=== PATIENT | female | born 1995 | race Two or more races ===

== ENCOUNTER 2024-10-27 20:30 | Emergency (ER) | payer MEDICAID, SELFPAY ==
[2024-10-27 20:31] VITALS: BMI 27.4
[2024-10-27 20:55] VITALS: BP 138/88; PULSE 155; RESP 20; TEMP 36.9; O2SAT 100
--- NOTE | 2024-10-27 21:12 | PD.EDANX ---
ED Anxiety RME/HPI General Chief Complaint: Anxiety Stated Complaint: anxiety Time Seen by Provider: 10/27/24 21:03 Source: patient, RN notes reviewed and old records reviewed Arrival date/time: 10/27/24 20:30 Mode of arrival: ambulatory Limitations: no limitations RME / HPI RME / HPI narrative: 28yof with hx of anxiety presents to ED for anxiety, palpitations that initiated at 1000 this morning. Denies any specific triggers, patient states I just feel stressed. Symptoms have gradually worsened throughout the day. Patient c/o mild dizziness. No shortness of breath, chest pain, nausea/vomiting, SI/HI or hallucinations reported. Patient tried taking her anxiolytics including gabapentin, trazodone and hydroxyzine without symptom relief. Related Data Home Medications ?Medication ?Instructions ?Recorded ?Confirmed vits no.[id number] fum 1 tab PO QDAY 03/19/19 04/11/19 27 mg iron-folic acid 800 mcg tablet ( Vitamin) Previous Rx's ?Medication ?Instructions ?Recorded hydrocodone 5 mg-acetaminophen 325 1 tab PO Q6H PRN pain #10 tabs 10/09/21 mg tablet hydrocodone 5 mg-acetaminophen 325 1 tab PO BID PRN pain #10 tabs 04/16/ mg tablet Allergies Allergy/AdvReac Type Severity Reaction Status Date / Time No Known Allergies Allergy Verified 10/27/24 20:36 Review of Systems Review of Systems Systems Reviewed: All systems reviewed, normal except as documented Constitutional Constitutional: Denies chills and Denies fever(s) ENT Ears, Nose, Mouth, and Throat: Denies dizziness Cardiovascular Cardiovascular: Denies chest pain, Denies dyspnea, Denies lightheadedness and Reports palpitations Respiratory Respiratory: Denies dyspnea Gastrointestinal Gastrointestinal: Denies nausea and Denies vomiting Neurologic Neurologic: Denies dizziness Psychiatric Psychiatric: Reports anxiety, Denies homicidal ideation and Denies suicidal ideation Endocrine Endocrine: Reports palpitations Past Medical History Past Medical History PSYCHO/SOCIAL: Positive Anxiety Social History SMOKING STATUS: Never smoker SUBSTANCE USE: does not use ALCOHOL: Never ED Exam General Limitations: Present no limitations General appearance: Present alert and in no apparent distress Head Head exam: Present atraumatic and normocephalic Eye Eye exam: Present normal appearance, PERRL and EOMI ENT ENT exam: Present normal exam and mucous membranes moist Neck Neck exam: Present normal inspection and full ROM Chest Chest inspection: Present normal inspection and symmetric chest wall rise Respiratory Respiratory exam: Present normal lung sounds bilaterally; Absent respiratory distress Cardiovascular Cardiovascular exam: Present normal rhythm and tachycardia Extremities Exam Extremities exam: Present normal inspection and full ROM Neurological Exam Neurological exam: Present alert and oriented X3 Psychiatric Psychiatric exam: Present anxious; Absent agitated, homicidal ideation or suicidal ideation Skin Skin exam: Present warm, dry, intact and normal color Course Quality Measures none Orders Category Date Time Status Alcohol, Urine Stat Lab 10/27/24 21:11 Ordered CBC Stat Lab 10/27/24 21:11 Ordered CMP [Comprehensive Metabolic Panel] Stat Lab 10/27/24 21:11 Ordered Drug Screen,Urine Stat Lab 10/27/24 21:11 Ordered TSH [Thyroid Stimulating Hormone] Stat Lab 10/27/24 21:11 Ordered Troponin I Stat Lab 10/27/24 21:11 Ordered UA [Urinalysis] Stat Lab 10/27/24 21:11 Ordered LORazepam [Ativan Inj] Med 10/27/24 21:11 Once 2 mg IM X1 ONE SODIUM CHLORIDE 0.9% @ Wide Open(1,000ml) Med 10/27/24 21:11 Ordered Sodium Chloride 0.9% 1000 ml [Ns] 1,000 ml IV 999 mls/hr Vital Signs Vital signs: Vital Signs Temperature 98.5 F 10/27/24 20:55 Pulse Rate 155 H 10/27/24 20:55 Respiratory Rate 20 10/27/24 20:55 Blood Pressure 138/88 H 10/27/24 20:55 Pulse Oximetry (%) 100 10/27/24 20:55 Oxygen Delivery Method Room Air 10/27/24 20:55 Procedures -ED EKG Interpretation #1: Date of EK10/27/24 Rate: 142 Interpretation: Interpreted by me EKG Impression: No acute ST-T changes, No ectopy, No ischemic changes, Sinus tachycardia, Normal QRS, Normal intervals and Normal axis Anxiety MDM Narrative MDM Narrative: 28yof with hx of anxiety presents to ED for anxiety, palpitations that initiated at 1000 this morning. Denies any specific triggers, patient states I just feel stressed. Symptoms have gradually worsened throughout the day. Patient c/o mild dizziness. No shortness of breath, chest pain, nausea/vomiting, SI/HI or hallucinations reported. Patient tried taking her anxiolytics including gabapentin, trazodone and hydroxyzine without symptom relief. Patient reassessed. She is feeling better, symptoms and vitals improved. Encouraged close follow-up with PCP. Stable for discharge, RTED precautions given. Patient data External records reviewed:: [facility] previous records (04/16/2024 ED visit for incomplete ) Clinical information provided by:: patient Social determinants that could affect healthcare access:: other (specify) (poor access to healthcare) Patient has the following chronic illnesses:: anxiety How is presenting disease/condition affected by chronic disease/condition?: caused by Evaluation data The following diagnostics were reviewed and interpreted by me:: lab results and EKG tracing(s) Lab and/or radiology exams considered but not ordered:: CXR: Lungs clear, no respiratory distress or hypoxia Interpretation Summary: wbc 6.8 hgb 12.7 UDS negative Etoh urine negative hcg negative trop negative TSH wnl Medications / Prescriptions Medications or Prescriptions considered but not ordered:: none Medication administrations:: Above medications administered in ED Consultations Consultation(s) initiated? (list below): No Diagnosis Differential diagnosis anxiety: hyperventilation, panic disorder and acute anxiety Most likely diagnosis given after review of the tests above:: Anxiety Admission Indicated Admission indicated?: not indicated Admission Request Was there a request for admission?: No Disposition Plan Disposition Plan: Discharge Discharge Attestation Discharge Attestation: The patient and all family members were given an opportunity to ask questions and understood the discharge instructions. Discharge instructions specifically effects, indications for sooner follow up or return to the emergency department, and the expected course of current diagnosis. Patient condition: Stable Discharge Plan Plan Patient Disposition: HOME (Self Care) Patient condition on transfer: Stable Prescriptions/Referrals Prescriptions/Med Rec: No Action hydrocodone-acetaminophen 5-325 mg tablet 1 tab PO Q6H MDD 3 PRN (Reason: pain) Qty: 10 0RF Vitamin 27 mg iron- 800 mcg Tablet 1 tab PO QDAY hydrocodone-acetaminophen 5-325 mg tablet 1 tab PO BID MDD 10 PRN (Reason: pain) Qty: 10 0RF Referrals: Cristhian Griffin MD [Primary Care Provider] - In 1 week Problem List Clinical Impression: Anxiety, Heart palpitations Patient/Caregiver Discharge Instructions Education Materials: ED Anxiety Reaction Print Language: Nepali Stand Alone Forms: Marley Award Info., Patient Portal Info Letter PA/[employer] Supervising Physician PA/[employer] Supervising Physician: Derrick
[2024-10-27 21:36] LABS: Basophils % (Auto) 1 % (0-2.5); Eosinophils % (Auto) 1 % (0-10); Hematocrit 39.2 % (36.0-46.0); Hemoglobin 12.7 g/dL (12.0-16.0); Immature Granulocytes % (Auto) 0 % (0-0); Immature Granulocytes Auto 0.01 Thou/mm3 (0.00-0.00); Lymphocytes # (Auto) 1.6 Thou/mm3 (1.0-4.8); Lymphocytes % (Auto) 24 % (10-50); Mean Corpuscular HGB Conc 32.4 g/dl (31.0-37.0); Mean Corpuscular Volume 83 fL (80-100); Monocytes # (Auto) 0.5 Thou/mm3 (0.0-0.8); Monocytes % (Auto) 7 % (0-12); Neutrophils # (Auto) 4.6 Thou/mm3 (1.8-7.7); Neutrophils % (Auto) 68 % (37-80); Nucleated Red Blood Cell % 0 /100 WBC (0); Platelet Count 267 Thou/mm3 (140-440); RDW Standard Deviation 57.6 fL (36.4-46.3); White Blood Count 6.8 Thou/mm3 (3.6-11.0)
[2024-10-27 21:37] LABS: Collection Type, Urine Clean Catch; RBC,Urine 0 /hpf (0-3)
[2024-10-27 21:48] LABS: Bacteria,Urine Rare; Bilirubin,Urine Negative (Negative); Blood,Urine Negative (Negative); Clarity,Urine Turbid (Clear/Hazy); Color,Urine Yellow (Lt Yel-Yel); Glucose, Urine Negative (Negative); Ketones,Urine Negative (Negative); Leukocyte Esterase,Urine Positive (Negative); Nitrite,Urine Negative (Negative); Protein,Urine 1+ (Neg - Trace); Specific Gravity,Urine 1.024 (1.001-1.035); Squamous Epithelial Cell,Urine 24 /hpf (0-5); Urobilinogen,Urine Negative mg/dL (0.0-1.0); WBC,Urine 2 /hpf (0-5)
[2024-10-27 21:51] LABS: HCG Qualitative,Urine Negative
[2024-10-27 21:54] LABS: Alanine Aminotransferase 51 U/L (10-49); Albumin, Serum 4.4 gm/dL (3.5-5.0); Albumin/Globulin Ratio 1.5 (1.2-2.2); Alkaline Phosphatase 69 U/L (46-116); Anion Gap 8 (7-16); Aspartate Amino Transferase 31 U/L (0-34); BUN/Creatinine Ratio 9 Ratio (12-20); Bilirubin,Total 0.3 mg/dL (0.3-1.2); Blood Urea Nitrogen 7 mg/dL (9-23); Calcium 8.8 mg/dL (8.3-10.6); Calcium (Corrected) 8.8 mg/dL (8.5-10.1); Carbon Dioxide 25.5 mMol/L (20.0-31.0); Chloride 105 mMol/L (98-107); Creatinine (Component) 0.8 mg/dL (0.6-1.3); Estimated Creatinine Clearance 96.7 mL/min (>60); Globulin 2.9 gm/dL (2.3-3.5); Glucose 132 mg/dL (74-106); Osmolality,Calculated 275 (275-295); Potassium 3.6 mMol/L (3.4-5.1); Sodium 138 mMol/L (136-145); Thyroid Stimulating Hormone 1.08 uIU/mL (0.55-4.78); Total Protein 7.3 gm/dL (5.7-8.2); Troponin I < 0.002 ng/mL (0.0-0.045); eGFR > 60 See Note
[2024-10-27 21:54] LABS: Alcohol, Urine Negative (Negative); Amphetamine/Methamp Scrn,U Negative (Negative); Barbiturate Screen,Urine Negative (Negative); Benzodiazepines Screen,Urine Negative (Negative); Benzoylecgonine Screen, Ur Negative (Negative); Fentanyl Screen,Urine Negative (Negative); Opiate Screen,Urine Negative (Negative); THC Screen,Urine Negative (Negative)
[2024-10-27] MEDS: LORazepam 2 MG/ML VIAL IM (22:18)
[2024-10-27] MEDS: SODIUM CHLORIDE 0.9% 1000 ML 1,000 ML 999 ML IV (22:29)
[2024-10-27 23:29] VITALS: BP 117/81; PULSE 85; RESP 17; TEMP 36.8; O2SAT 98
== END 2024-10-27 23:35 | disposition home or self-care (01) ==
PROVIDERS: Physician Assistant; Emergency Provider Emergency Medicine; PCP Family Medicine
DX: F41.9 Anxiety disorder, unspecified (principal); R00.2 Palpitations; R00.0 Tachycardia, unspecified
CPT/HCPCS: 36415; 80053; 80307; 80320; 81001; 81025; 84443; 84484; 85025; 93005; 96372; 99284; J2060; J7030; G0480

== ENCOUNTER 2024-11-11 17:34 | Emergency (ER) | payer MEDICAID, SELFPAY ==
[2024-11-11 17:43] VITALS: BP 134/88; PULSE 113; RESP 18; TEMP 36.7; O2SAT 98
--- NOTE | 2024-11-11 17:52 | XR_ITS ---
Examination: PA lateral chest 2 views TECHNIQUE: Upright PA lateral chest 2 views Date and time: November 11, 2024 1905 hours Comparison September 11, 2021. INDICATIONS: Shortness of breath today. FINDINGS: Normal heart size Lungs are clear. Osseous structures are intact IMPRESSION: No active disease
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
--- NOTE | 2024-11-11 18:26 | PC.NURSE ---
OFFICER Ziggy MATUTE WITH PT IN CONFERENCE ROOM. PT'S MOTHER ALSO PRESENT.
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
[2024-11-11 18:37] LABS: Basophils % (Auto) 1 % (0-2.5); Eosinophils % (Auto) 1 % (0-10); Hematocrit 39.4 % (36.0-46.0); Hemoglobin 13.3 g/dL (12.0-16.0); Immature Granulocytes % (Auto) 0 % (0-0); Immature Granulocytes Auto 0.01 Thou/mm3 (0.00-0.00); Lymphocytes # (Auto) 1.3 Thou/mm3 (1.0-4.8); Lymphocytes % (Auto) 20 % (10-50); Mean Corpuscular HGB Conc 33.8 g/dl (31.0-37.0); Mean Corpuscular Hemoglobin 28.3 pg (25.0-35.0); Mean Corpuscular Volume 84 fL (80-100); Monocytes # (Auto) 0.3 Thou/mm3 (0.0-0.8); Monocytes % (Auto) 5 % (0-12); Neutrophils # (Auto) 4.7 Thou/mm3 (1.8-7.7); Neutrophils % (Auto) 74 % (37-80); Nucleated Red Blood Cell % 0 /100 WBC (0); Platelet Count 229 Thou/mm3 (140-440); RDW Standard Deviation 50.4 fL (36.4-46.3); White Blood Count 6.4 Thou/mm3 (3.6-11.0)
[2024-11-11 19:10] LABS: Alanine Aminotransferase 15 U/L (10-49); Albumin, Serum 4.5 gm/dL (3.5-5.0); Albumin/Globulin Ratio 1.7 (1.2-2.2); Alkaline Phosphatase 53 U/L (46-116); Anion Gap 9 (7-16); Aspartate Amino Transferase 17 U/L (0-34); BUN/Creatinine Ratio 17 Ratio (12-20); Bilirubin,Total 0.3 mg/dL (0.3-1.2); Blood Urea Nitrogen 10 mg/dL (9-23); Calcium 8.8 mg/dL (8.3-10.6); Calcium (Corrected) 8.8 mg/dL (8.5-10.1); Carbon Dioxide 25.3 mMol/L (20.0-31.0); Chloride 108 mMol/L (98-107); Creatinine (Component) 0.6 mg/dL (0.6-1.3); Globulin 2.6 gm/dL (2.3-3.5); Glucose 108 mg/dL (74-106); Osmolality,Calculated 283 (275-295); Potassium 3.4 mMol/L (3.4-5.1); Sodium 142 mMol/L (136-145); Total Protein 7.1 gm/dL (5.7-8.2); eGFR > 60 See Note
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
[2024-11-11] MEDS: ONDANSETRON ODT 4 MG TABRAP PO (19:30)
[2024-11-11] MEDS: ACETAMINOPHEN w/COD 300-30 TABLET 2 TAB PO (19:30)
[2024-11-11 19:44] LABS: Collection Type, Urine Clean Catch
[2024-11-11 19:50] LABS: HCG Qualitative,Urine Negative
[2024-11-11 19:51] LABS: Bilirubin,Urine Negative (Negative); Blood,Urine Trace (Negative); Clarity,Urine Clear (Clear/Hazy); Color,Urine Lt-Yellow (Lt Yel-Yel); Glucose, Urine Negative (Negative); Ketones,Urine Negative (Negative); Leukocyte Esterase,Urine Negative (Negative); Nitrite,Urine Negative (Negative); Protein,Urine Negative (Neg - Trace); RBC,Urine 2 /hpf (0-3); Specific Gravity,Urine 1.016 (1.001-1.035); Squamous Epithelial Cell,Urine 1 /hpf (0-5); Urobilinogen,Urine Negative mg/dL (0.0-1.0); WBC,Urine 4 /hpf (0-5)
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
[2024-11-11 20:05] LABS: Amphetamine/Methamp Scrn,U Negative (Negative); Barbiturate Screen,Urine Negative (Negative); Benzodiazepines Screen,Urine Negative (Negative); Benzoylecgonine Screen, Ur Negative (Negative); Fentanyl Screen,Urine Negative (Negative); Opiate Screen,Urine Negative (Negative); THC Screen,Urine Negative (Negative)
[2024-11-11 21:30] VITALS: BP 108/71; PULSE 84; RESP 20; TEMP 36.8; O2SAT 100
[2024-11-11] MEDS: KETOROLAC INJ 60 MG/2 ML VIAL IM (21:32)
== END 2024-11-11 22:18 | disposition home or self-care (01) ==
PROVIDERS: Nurse Practitioner Family; Emergency Provider Emergency Medicine
DX: T14.8XXA Other injury of unspecified body region, initial encounter (principal); Y04.0XXA Assault by unarmed brawl or fight, initial encounter; R51.9 Headache, unspecified; M79.602 Pain in left arm; M54.2 Cervicalgia; R06.02 Shortness of breath
CPT/HCPCS: 36415; 70450; 70486; 71046; 72125; 80053; 80307; 81001; 81025; 85025; 96372; 99284; J1885; Q0162; A9270

== ENCOUNTER 2024-12-30 13:17 | Emergency (ER) | payer MEDICAID, SELFPAY ==
--- NOTE | 2024-12-30 13:22 | EKG_ITS ---
[facility] Test Date: 2024-12-30 Pat Name: RADHA PATTERSON Department: Room: - Gender: Female Floorman: : 1995 Requested By: ED Temporary Provider Order Number: [id number] Reading MD: ED Temporary Provider Measurements Intervals [place] Rate: 96 P: 11 MI: 130 QRS: 100 QRSD: 101 T: 54 QT: 342 QTc: 433 Interpretive Statements SINUS RHYTHM BORDERLINE RIGHT AXIS DEVIATION [QRS AXIS > 90] Compared to ECG 09/11/2021 13:52:43 No significant changes /store/S0/[id number]
[2024-12-30 13:33] VITALS: BP 125/84; PULSE 95; RESP 18; TEMP 36.8; O2SAT 99; BMI 23.7
--- NOTE | 2024-12-30 14:02 | XR_ITS ---
Examination: Abdomen sonogram, Limited Date and time of exam: December 30, 2024, 1510 hrs. Indications: Right upper abdominal pain beginning 11:00 AM this morning Technique: Real-time mccurdy scale transabdominal sonographic images of the upper abdomen obtained. Findings: Normal gallbladder. Normal common bile duct 0.25 cm. Pancreatic head 2.4 cm Liver 10.2 cm no liver lesions Normal hepatopedal portal venous oh Patent IVC Impression: Negative study
[2024-12-30 14:39] LABS: Basophils % (Auto) 1 % (0-2.5); Eosinophils % (Auto) 1 % (0-10); Hematocrit 40.7 % (36.0-46.0); Hemoglobin 13.6 g/dL (12.0-16.0); Immature Granulocytes % (Auto) 0 % (0-0); Immature Granulocytes Auto 0.01 Thou/mm3 (0.00-0.00); Lymphocytes # (Auto) 1.3 Thou/mm3 (1.0-4.8); Lymphocytes % (Auto) 27 % (10-50); Mean Corpuscular HGB Conc 33.4 g/dl (31.0-37.0); Mean Corpuscular Hemoglobin 27.6 pg (25.0-35.0); Mean Corpuscular Volume 83 fL (80-100); Monocytes # (Auto) 0.3 Thou/mm3 (0.0-0.8); Monocytes % (Auto) 6 % (0-12); Neutrophils # (Auto) 3.1 Thou/mm3 (1.8-7.7); Neutrophils % (Auto) 65 % (37-80); Nucleated Red Blood Cell % 0 /100 WBC (0); Platelet Count 253 Thou/mm3 (140-440); RDW Standard Deviation 36.9 fL (36.4-46.3); Red Blood Count 4.93 Miln/mm3 (4.00-5.20); White Blood Count 4.8 Thou/mm3 (3.6-11.0)
[2024-12-30 14:46] LABS: Collection Type, Urine Clean Catch
[2024-12-30 14:55] LABS: Bilirubin,Urine Negative (Negative); Blood,Urine Negative (Negative); Clarity,Urine Turbid (Clear/Hazy); Color,Urine Yellow (Lt Yel-Yel); Glucose, Urine Negative (Negative); Ketones,Urine 1+ (Negative); Leukocyte Esterase,Urine Negative (Negative); Nitrite,Urine Negative (Negative); Protein,Urine 1+ (Neg - Trace); RBC,Urine 4 /hpf (0-3); Specific Gravity,Urine 1.028 (1.001-1.035); Squamous Epithelial Cell,Urine 1 /hpf (0-5); Urobilinogen,Urine Negative mg/dL (0.0-1.0); WBC,Urine 5 /hpf (0-5)
[2024-12-30 14:56] LABS: HCG Qualitative,Urine Negative
[2024-12-30 14:56] LABS: B-Type Natriuretic Peptide < 20 pg/mL (0-100)
[2024-12-30 14:57] LABS: Alanine Aminotransferase 12 U/L (10-49); Albumin, Serum 4.4 gm/dL (3.5-5.0); Albumin/Globulin Ratio 1.5 (1.2-2.2); Alkaline Phosphatase 51 U/L (46-116); Anion Gap 6 (7-16); Aspartate Amino Transferase 15 U/L (0-34); BUN/Creatinine Ratio 10 Ratio (12-20); Bilirubin,Total 0.5 mg/dL (0.3-1.2); Blood Urea Nitrogen 7 mg/dL (9-23); Calcium 8.8 mg/dL (8.3-10.6); Calcium (Corrected) 8.8 mg/dL (8.5-10.1); Carbon Dioxide 24.3 mMol/L (20.0-31.0); Chloride 110 mMol/L (98-107); Creatinine (Component) 0.7 mg/dL (0.6-1.3); Estimated Creatinine Clearance 100.6 mL/min (>60); Globulin 2.9 gm/dL (2.3-3.5); Glucose 102 mg/dL (74-106); Lipase 32 U/L (12-53); Osmolality,Calculated 277 (275-295); Potassium 4.1 mMol/L (3.4-5.1); Sodium 140 mMol/L (136-145); Total Protein 7.3 gm/dL (5.7-8.2); Troponin I < 0.002 ng/mL (0.0-0.045); eGFR > 60 See Note
--- NOTE | 2024-12-30 15:30 | PD.EDCHEST ---
ED Chest Pain RME/HPI General Chief Complaint: Chest Pain Stated Complaint: CHEST PALPITATIONS,TINGLING BILATERAL ARMS X 2 HRS Time Seen by Provider: 12/30/24 13:59 Arrival date/time: 12/30/24 13:17 This is a case of 29-year-old female who came in in the emergency room due to chest pain on and off for 1 week associated with palpitation patient also noted to have epigastric abdominal pain and tingling sensation on both arm worsening symptoms this patient decided to sought consult here in the emergency room Limitations: no limitations Related Data Home Medications ?Medication ?Instructions ?Recorded ?Confirmed vits no.124-ferrous fum 1 tab PO QDAY 03/19/19 04/11/19 27 mg iron-folic acid 800 mcg tablet ( Vitamin) Previous Rx's ?Medication ?Instructions ?Recorded hydrocodone 5 mg-acetaminophen 325 1 tab PO Q6H PRN pain #10 tabs 10/09/21 mg tablet hydrocodone 5 mg-acetaminophen 325 1 tab PO BID PRN pain #10 tabs 04/16/ mg tablet hydrocodone 5 mg-acetaminophen 325 2 tab PO Q8H PRN pain #20 tabs 11/11/24 mg tablet ibuprofen 600 mg tablet 600 mg PO TID PRN fever or pain 11/11/24 #30 tabs lidocaine 5 % topical patch 2 patch topical QDAY PRN pain #30 11/11/24 (Lidoderm) ea famotidine 20 mg tablet 20 mg PO BID 30 days #60 tabs 12/30/24 omeprazole 40 mg capsule,delayed 40 mg PO QDAY 30 days #30 caps 12/30/24 release ondansetron 4 mg disintegrating 4 mg PO Q8H PRN nausea and 12/30/24 tablet vomiting #20 tabs Allergies Allergy/AdvReac Type Severity Reaction Status Date / Time No Known Allergies Allergy Verified 11/11/24 17:38 Review of Systems Review of Systems Systems Reviewed: All systems reviewed, normal except as documented Constitutional Constitutional: Reports system reviewed and no additional complaints, except as documented, Reports as per HPI, Denies anorexia, Denies body ache(s), Denies chills and Denies fever(s) ENT Ears, Nose, Mouth, and Throat: Denies dysphagia and Denies odynophagia Cardiovascular Cardiovascular: Reports system reviewed and no additional complaints, except as documented, Reports as per HPI, Denies acrocyanosis, Reports chest pain, Denies chest pain at rest, Denies chest pain with activity, Denies claudication, Denies diaphoresis, Denies dyspnea, Denies dyspnea on exertion, Denies edema, Denies irregular heart rhythm, Denies leg edema, Denies leg ulcers, Denies lightheadedness, Denies orthopnea, Denies palpitations, Denies paroxysmal nocturnal dyspnea, Denies pedal edema, Denies radiating jaw, neck or arm pain, Reports rapid heart rate, Denies slow heart rate and Denies syncope Respiratory Respiratory: Reports system reviewed and no additional complaints, except as documented, Reports as per HPI, Denies dyspnea and Denies dyspnea on exertion Gastrointestinal Gastrointestinal: Reports system reviewed and no additional complaints, except as documented, Reports as per HPI, Reports abdominal pain, Denies belching, Denies bloating, Denies change in bowel habits, Denies change in stool character, Denies coffee ground emesis, Denies constipation, Denies cramping, Denies diarrhea, Denies dyspepsia, Denies dysphagia, Denies early satiety, Denies excessive flatus, Denies fecal incontinence, Denies heartburn, Denies hematemesis, Denies hematochezia, Denies loose stools, Denies melena, Reports nausea, Denies odynophagia, Denies tenesmus and Reports vomiting Genitourinary Genitourinary: Reports system reviewed and no additional complaints, except as documented and Reports as per HPI Musculoskeletal Musculoskeletal: Reports system reviewed and no additional complaints, except as documented and Reports as per HPI Neurologic Neurologic: Reports system reviewed and no additional complaints, except as documented, Reports as per HPI and Denies syncope Endocrine Endocrine: Denies palpitations Past Medical History Past Medical History NEUROLOGIC: Negative Neurological Disorders CARDIAC: Negative Cardiac Disorders or Congestive Heart Failure RESPIRATORY: Negative Chronic Obstructive Pulmonary Disease (COPD) or Asthma GASTROINTESTINAL: Negative Gastrointestinal Disorders GENITOURINARY: Negative Genitourinary Disorders or Renal Disease MUSCULOSKELETAL: Negative Musculoskeletal Disorders ENDOCRINE: Negative Endocrine Disorders, Diabetes Mellitus Type 1 or Diabetes Mellitus Type 2 HEMATOLOGIC: Negative Blood Disorders or Sickle Cell Disease PSYCHO/SOCIAL: Positive Anxiety OTHER HISTORY: Negative Hospitalization, Autoimmune Disease, Down Syndrome, Developmental Delay, Falls, Blood Transfusions, Blood Transfusion Reaction, Anesthesia Reactions, Organ Transplant, Chemotherapy, Radiation Therapy, Hyperbaric Therapy, MRSA, VRSA, Vancomycin-Resistant Enterococci or Cancer Family History FAMILY HISTORY: Positive Family Cardiac Disorders (FATHER , GRANDFATHER) and Family Cancer (GRANDMOTHER BREAST CANCER); Negative Family Psychiatric Problems, Family Respiratory Disorders, Family Gastrointestinal Problems, Family Surgery or Family Anesthesia Reaction Surgical History SURGICAL: Negative Section or Organ Transplant Social History SMOKING STATUS: Never smoker SUBSTANCE USE: does not use ED Exam General Limitations: Present no limitations General appearance: Present alert and in no apparent distress Head Head exam: Present atraumatic, normocephalic and normal inspection Eye Eye exam: Present normal appearance, PERRL and EOMI ENT ENT exam: Present normal exam, normal oropharynx, mucous membranes moist, mucous membranes dry and TM's normal bilaterally Neck Neck exam: Present normal inspection, full ROM and trachea midline; Absent tenderness, meningismus, lymphadenopathy or thyromegaly Chest Chest inspection: Present normal inspection and symmetric chest wall rise; Absent tenderness or rash Respiratory Respiratory exam: Present normal lung sounds bilaterally; Absent respiratory distress, wheezes, stridor, accessory muscle use or prolonged expiratory phase Cardiovascular Cardiovascular exam: Present regular rate, normal rhythm and normal heart sounds; Absent bradycardia, tachycardia, irregular rhythm, systolic murmur or diastolic murmur Abdominal Exam Abdominal exam: Present soft and normal bowel sounds; Absent distention, tenderness, guarding, rebound, rigidity, diminished bowel sounds or hyperactive bowel sounds Extremities Exam Extremities exam: Present normal inspection and full ROM Expanded Upper Extremity Exam Shoulder exam: Present normal inspection and full ROM; Absent tenderness or swelling Arm exam: Present normal inspection and full ROM; Absent tenderness or swelling Elbow exam: Present normal inspection and full ROM; Absent tenderness or swelling Back Exam Back exam: Present normal inspection and full ROM Neurological Exam Neurological exam: Present alert, oriented X3, CN II-XII intact, normal gait and reflexes normal; Absent motor sensory deficit Psychiatric Psychiatric exam: Present normal affect and normal mood Skin Skin exam: Present warm, dry, intact and normal color Course Quality Measures none Orders Category Date Time Status EKG (ED ONLY) *Do not use* NOW Care 12/30/24 13:22 Completed EKG (ED Only) Stat Exams 12/30/24 13:22 Draft EKG (ED Only) Urgent Exams 12/30/24 13:22 Ordered US gall bladder Stat Exams 12/30/24 14:02 Completed BNP [B-Type Natriuretic Peptide] Stat Lab 12/30/24 14:24 Completed CBC Stat Lab 12/30/24 14:24 Completed Comprehensive Metabolic Panel Stat Lab 12/30/24 14:24 Completed HCG Qualitative,Urine Stat Lab 12/30/24 14:42 Completed Lipase Stat Lab 12/30/24 14:24 Completed Thyroid Stimulating Hormone Stat Lab 12/30/24 14:24 Completed Troponin I Stat Lab 12/30/24 14:24 Completed Urinalysis Stat Lab 12/30/24 14:42 Completed Famotidine [Pepcid] Med 12/30/24 15:28 Discontinued 40 mg PO X1 ONE Lidocaine 2% Viscous [Xylocaine 2% Viscous] Med 12/30/24 15:28 Discontinued 15 ml PO X1 ONE Ondansetron Odt [Zofran Odt] Med 12/30/24 15:28 Discontinued 4 mg PO X1 ONE mg Hyd/Al Hyd/Melissa Susp [Maalox Susp] Med 12/30/24 15:28 Discontinued 30 ml PO X1 ONE Vital Signs Vital signs: Vital Signs Temperature 98.3 F 12/30/24 13:33 Pulse Rate 95 12/30/24 13:33 Respiratory Rate 18 12/30/24 13:33 Blood Pressure 125/84 12/30/24 13:33 Pulse Oximetry (%) 99 12/30/24 13:33 Oxygen Delivery Method Room Air 12/30/24 13:33 Patient is afebrile not tachycardic not tachypneic BP stable not hypoxic oxygen saturation is 99% in room air Chest Pain MDM Narrative MDM Narrative:: This is a case of 29-year-old female who came in in the emergency room due to chest pain on and off for 1 week associated with palpitation patient also noted to have epigastric abdominal pain and tingling sensation on both arm worsening symptoms this patient decided to sought consult here in the emergency room patient physical examination patient is awake alert oriented not in distress nontoxic looking patient is afebrile not tachycardic not tachypneic BP stable not hypoxic lungs sound is clear no crackles no rales no retraction no stridor heart normal rate regular rhythm no murmur abdominal exam mild tenderness epigastric area no guarding no rebound no rigidity negative psoas negative straight or negative Rovsing's negative McBurney's negative Baumann sign negative CVA tenderness blood test showed no leukocytosis no anemia kidney and liver function is normal no electrolyte imbalance BNP and troponin is negative TSH is normal urinalysis is normal ultrasound of the gallbladder is negative at this point patient symptoms is not cardiopulmonary pathology possible gastritis patient was given GI cocktail and Zofran which patient condition markedly improved and resolved patient will follow-up with PCP in 2 days for reevaluation and to be referred to therapy administrative assistant for gastritis for possible EGD she needs to be seen also by shake backboard notcher for chest pain palpitation for possible echocardiogram stress test and Holter monitor patient was prescribed with omeprazole and Pepcid for gastritis and Zofran for vomiting patient understood very well the discharge instruction Patient was discharged with comfortable condition walking with stable gait. Patient verbalized no further complains explained diagnosis and answered patient question. Patient is comfortable with the proposed management plan including the need to follow up with his/her primary care physician and any specialist if applicable Discussed patient for any urgent condition or worsening sx, He/She needed to go to emergency room immediately or call 911. Patient acknowledge the responsibility to follow up as instructed and to monitor her/his symptoms. For any persistence of the symptoms for more than 3-5 days return precaution advised. Discussed the result of the test and was given printed discharge instruction Patient data External records reviewed:: [facility] previous records Clinical information provided by:: patient Social determinants that could affect healthcare access:: none Patient has the following chronic illnesses:: None How is presenting disease/condition affected by chronic disease/condition?: no chronic disease Evaluation data The following diagnostics were reviewed and interpreted by me:: lab results and radiology exam(s) Lab and/or radiology exams considered but not ordered:: Reviewed Interpretation Summary: Reviewed Medications / Prescriptions Medications or Prescriptions considered but not ordered:: Given Medication administrations:: Medication Administration History Discontinued Medications Al Hydrox/Mg Hydrox/Simethicone (Mg Hyd/Al Hyd/Melissa (Maalox Reg) Susp 30 Ml Udc) 30 ml PO X1 ONE Stop: 12/30/24 15:29 Last Admin: 12/30/24 16:03 Dose: 30 ml Documented By: Famotidine (Famotidine 20 Mg Tablet) 40 mg PO X1 ONE Stop: 12/30/24 15:29 Last Admin: 12/30/24 16:02 Dose: 40 mg Documented By: Lidocaine HCl (Lidocaine Viscous 2% 15 Ml Udc) 15 ml PO X1 ONE Stop: 12/30/24 15:29 Last Admin: 12/30/24 16:04 Dose: 15 ml Documented By: Ondansetron HCl (Ondansetron Odt 4 Mg Tabrap) 4 mg PO X1 ONE; Protocol Stop: 12/30/24 15:29 Last Admin: 12/30/24 16:02 Dose: 4 mg Documented By: Given Consultations Consultation(s) initiated? (list below): No Diagnosis Chest Pain Differential Diagnosis: other (Chest pain of unknown etiology gastritis costochondritis atypical chest pain) Most likely diagnosis given after review of the tests above:: Gastritis Admission Indicated Admission indicated?: not indicated Explain why admission is indicated or not indicated:: Not indicated Admission Request Was there a request for admission?: No Admission Attestation Admission request attestation: Not indicated Disposition Plan Disposition Plan: Discharge Discharge Attestation Discharge Attestation: The patient and all family members were given an opportunity to ask questions and understood the discharge instructions. Discharge instructions specifically effects, indications for sooner follow up or return to the emergency department, and the expected course of current diagnosis. Patient condition: Stable Discharge Plan Plan Patient Disposition: HOME (Self Care) Patient condition on transfer: Stable Prescriptions/Referrals Prescriptions/Med Rec: New omeprazole 40 mg capsule,delayed release(DR/EC) 40 mg PO QDAY 30 Days Qty: 30 0RF famotidine 20 mg tablet 20 mg PO BID 30 Days Qty: 60 0RF ondansetron 4 mg tablet,disintegrating 4 mg PO Q8H PRN (Reason: nausea and vomiting) Qty: 20 0RF No Action hydrocodone-acetaminophen 5-325 mg tablet 1 tab PO Q6H MDD 3 PRN (Reason: pain) Qty: 10 0RF Vitamin 27 mg iron- 800 mcg Tablet 1 tab PO QDAY hydrocodone-acetaminophen 5-325 mg tablet 1 tab PO BID MDD 10 PRN (Reason: pain) Qty: 10 0RF hydrocodone-acetaminophen 5-325 mg tablet 2 tab PO Q8H MDD 6 PRN (Reason: pain) Qty: 20 0RF lidocaine [Lidoderm] 5 % adhesive patch,medicated 2 patch topical QDAY PRN (Reason: pain) Qty: 30 0RF Rx Instructions: leave on most painful area for up to 12 hrs ibuprofen 600 mg tablet 600 mg PO TID PRN (Reason: fever or pain) Qty: 30 0RF Referrals: No Primary/Family,Physician [Primary Care Provider] - In 1 week Problem List Clinical Impression: Chest pain of unknown etiology, Palpitation, Gastritis Patient/Caregiver Discharge Instructions Education Materials: ED Chest Pain, Uncertain Cause, ED Gastritis (Adult), ED Palpitations Additional Instructions: Follow-up with your primary care physician in 2 days for reevaluation and to be referred to shake backboard notcher for further evaluation and treatment of chest pain and palpitation for possible echocardiogram stress test and Holter monitor and to be referred to GI specialist for gastritis for possible EGD for any recurrence persistent worsening symptoms or any emergent concern return to the emergency room immediately or call 911 avoid skipping of meals avoid fat fried high cholesterol foods avoid spicy food avoid alcohol soda coffee take your medication as directed increase water intake keep hydrated Print Language: Ecuadorean Stand Alone Forms: Marley Award Info., Patient Portal Info Letter PA/RETAIL SALES ASSISTANT Supervising Physician MARTHA/KAROLYN Supervising Physician: dr cintron
[2024-12-30 15:55] VITALS: BP 121/84; PULSE 90; RESP 16; TEMP 36.9; O2SAT 99
[2024-12-30] MEDS: ONDANSETRON ODT 4 MG TABRAP PO (16:02)
[2024-12-30] MEDS: FAMOTIDINE 20 MG TABLET 40 MG PO (16:02)
[2024-12-30] MEDS: MG HYD/AL HYD/SIME (Maalox Reg) SUSP 30 ML UDC PO (16:03)
[2024-12-30] MEDS: LIDOCAINE VISCOUS 2% 15 ML UDC PO (16:04)
[2024-12-30 16:08] LABS: Thyroid Stimulating Hormone 0.43 uIU/mL (0.55-4.78)
== END 2024-12-30 18:26 | disposition home or self-care (01) ==
PROVIDERS: Nurse Practitioner Family; Emergency Provider Emergency Medicine
DX: K29.70 Gastritis, unspecified, without bleeding (principal); R00.2 Palpitations; R07.9 Chest pain, unspecified
CPT/HCPCS: 36415; 76705; 80053; 81001; 81025; 83690; 83880; 84443; 84484; 85025; 93005; 99284; J3490; Q0162; A9270

== ENCOUNTER 2025-02-25 02:07 | Emergency (ER) | payer MEDICAID, SELFPAY ==
[2025-02-25 02:08] VITALS: BMI 25.9
[2025-02-25 02:12] VITALS: BP 137/91; PULSE 88; RESP 16; TEMP 37.1; O2SAT 100
--- NOTE | 2025-02-25 02:12 | EKG_ITS ---
[facility] Test Date: 2025-02-25 Pat Name: RADHA PATTERSON Department: Room: - Gender: Female [employer] Blender: : 1995 Requested By: ED Temporary Provider Order Number: [id number] Reading MD: ED Temporary Provider Measurements Intervals [place] Rate: 81 P: 3 SD: 124 QRS: 75 QRSD: 106 T: 53 QT: 349 QTc: 407 Interpretive Statements SINUS RHYTHM Compared to ECG 12/30/2024 13:25:44 No significant changes /store/S0/[id number]/[id number]
--- NOTE | 2025-02-25 02:18 | XR_ITS ---
Examination: PA chest single view TECHNIQUE: Upright PA chest single view Date and time: February 25, 2025, 0221 hours, comparison November 11, 2024 INDICATIONS: Chest pain and tachycardia today. FINDINGS: Normal heart size. Lungs are clear. The osseous structures are intact. IMPRESSION: No active disease.
[2025-02-25 03:03] LABS: Basophils # (Auto) 0.0 Thou/mm3 (0.0-0.2); Basophils % (Auto) 1 % (0-2.5); Eosinophils # (Auto) 0.1 Thou/mm3 (0.0-0.5); Eosinophils % (Auto) 2 % (0-10); Hematocrit 33.0 % (36.0-46.0); Hemoglobin 10.8 g/dL (12.0-16.0); Immature Granulocytes Auto 0.02 Thou/mm3 (0.00-0.00); Lymphocytes # (Auto) 2.0 Thou/mm3 (1.0-4.8); Lymphocytes % (Auto) 29 % (10-50); Mean Corpuscular HGB Conc 32.7 g/dl (31.0-37.0); Mean Corpuscular Hemoglobin 27.5 pg (25.0-35.0); Mean Corpuscular Volume 84 fL (80-100); Monocytes # (Auto) 0.5 Thou/mm3 (0.0-0.8); Monocytes % (Auto) 8 % (0-12); Neutrophils # (Auto) 4.1 Thou/mm3 (1.8-7.7); Neutrophils % (Auto) 61 % (37-80); Nucleated Red Blood Cell # 0.00 Thou/mm3 (0.00-0.00); Nucleated Red Blood Cell % 0 /100 WBC (0); Platelet Count 271 Thou/mm3 (140-440); RDW Standard Deviation 42.8 fL (36.4-46.3); Red Blood Count 3.93 Miln/mm3 (4.00-5.20); White Blood Count 6.8 Thou/mm3 (3.6-11.0)
[2025-02-25 03:23] LABS: HCG,Qualitative Serum Negative
[2025-02-25 03:27] LABS: Alanine Aminotransferase 15 U/L (10-49); Albumin, Serum 4.0 gm/dL (3.5-5.0); Albumin/Globulin Ratio 1.6 (1.2-2.2); Alkaline Phosphatase 50 U/L (46-116); Anion Gap 8 (7-16); Aspartate Amino Transferase 20 U/L (0-34); BUN/Creatinine Ratio 15 Ratio (12-20); Bilirubin,Total 0.3 mg/dL (0.3-1.2); Blood Urea Nitrogen 9 mg/dL (9-23); Calcium 9.5 mg/dL (8.3-10.6); Calcium (Corrected) 9.5 mg/dL (8.5-10.1); Carbon Dioxide 27.8 mMol/L (20.0-31.0); Chloride 107 mMol/L (98-107); Creatinine (Component) 0.6 mg/dL (0.6-1.3); Estimated Creatinine Clearance 119.7 mL/min (>60); Globulin 2.5 gm/dL (2.3-3.5); Glucose 124 mg/dL (74-106); Osmolality,Calculated 284 (275-295); Potassium 3.4 mMol/L (3.4-5.1); Sodium 143 mMol/L (136-145); Total Protein 6.5 gm/dL (5.7-8.2); Troponin I < 0.002 ng/mL (0.0-0.045); eGFR > 60 See Note
[2025-02-25 03:35] LABS: B-Type Natriuretic Peptide 23 pg/mL (0-100)
--- NOTE | 2025-02-25 04:57 | PD.EDCHEST ---
ED Chest Pain RME/HPI General Chief Complaint: Chest Pain Stated Complaint: CHEST PRESSURE /RAPID HR Time Seen by Provider: 02/25/25 02:17 Arrival date/time: 02/25/25 02:07 This is a case of 29-year-old female with history of anxiety came into the emergency room due to chest pain and palpitation for 1 day no shortness of breath persistence of the symptoms this patient decided to sought consult here in the emergency room Limitations: no limitations Related Data Home Medications ?Medication ?Instructions ?Recorded ?Confirmed vits no.124-ferrous fum 1 tab PO QDAY 03/19/19 04/11/19 27 mg iron-folic acid 800 mcg tablet ( Vitamin) Previous Rx's ?Medication ?Instructions ?Recorded hydrocodone 5 mg-acetaminophen 325 1 tab PO Q6H PRN pain #10 tabs 10/09/21 mg tablet hydrocodone 5 mg-acetaminophen 325 1 tab PO BID PRN pain #10 tabs 04/16/ mg tablet hydrocodone 5 mg-acetaminophen 325 2 tab PO Q8H PRN pain #20 tabs 11/11/24 mg tablet ibuprofen 600 mg tablet 600 mg PO TID PRN fever or pain 11/11/24 #30 tabs lidocaine 5 % topical patch 2 patch topical QDAY PRN pain #30 11/11/24 (Lidoderm) ea ondansetron 4 mg disintegrating 4 mg PO Q8H PRN nausea and 12/30/24 tablet vomiting #20 tabs hydroxyzine HCl 25 mg tablet 25 mg PO BID PRN As needed for 02/25/25 anxiety #10 tabs ibuprofen 800 mg tablet 800 mg PO Q8H PRN pain #20 tabs 02/25/25 Allergies Allergy/AdvReac Type Severity Reaction Status Date / Time No Known Allergies Allergy Verified 11/11/24 17:38 Review of Systems Review of Systems Systems Reviewed: All systems reviewed, normal except as documented Constitutional Constitutional: Reports system reviewed and no additional complaints, except as documented, Reports as per HPI, Denies chills and Denies fever(s) Cardiovascular Cardiovascular: Reports system reviewed and no additional complaints, except as documented, Reports as per HPI, Reports chest pain, Denies dyspnea and Reports rapid heart rate Respiratory Respiratory: Reports system reviewed and no additional complaints, except as documented, Reports as per HPI, Denies chest congestion, Denies cough and Denies dyspnea Gastrointestinal Gastrointestinal: Reports system reviewed and no additional complaints, except as documented and Reports as per HPI Genitourinary Genitourinary: Reports system reviewed and no additional complaints, except as documented and Reports as per HPI Neurologic Neurologic: Reports system reviewed and no additional complaints, except as documented and Reports as per HPI Past Medical History Past Medical History NEUROLOGIC: Negative Neurological Disorders CARDIAC: Negative Cardiac Disorders or Congestive Heart Failure RESPIRATORY: Negative Chronic Obstructive Pulmonary Disease (COPD) or Asthma GASTROINTESTINAL: Negative Gastrointestinal Disorders GENITOURINARY: Negative Genitourinary Disorders or Renal Disease MUSCULOSKELETAL: Negative Musculoskeletal Disorders ENDOCRINE: Negative Endocrine Disorders, Diabetes Mellitus Type 1 or Diabetes Mellitus Type 2 HEMATOLOGIC: Negative Blood Disorders or Sickle Cell Disease PSYCHO/SOCIAL: Positive Anxiety OTHER HISTORY: Negative Hospitalization, Autoimmune Disease, Down Syndrome, Developmental Delay, Falls, Blood Transfusions, Blood Transfusion Reaction, Anesthesia Reactions, Organ Transplant, Chemotherapy, Radiation Therapy, Hyperbaric Therapy, MRSA, VRSA, Vancomycin-Resistant Enterococci or Cancer Family History FAMILY HISTORY: Positive Family Cardiac Disorders (FATHER , GRANDFATHER) and Family Cancer (GRANDMOTHER BREAST CANCER); Negative Family Psychiatric Problems, Family Respiratory Disorders, Family Gastrointestinal Problems, Family Surgery or Family Anesthesia Reaction Surgical History SURGICAL: Negative Section or Organ Transplant Social History SMOKING STATUS: Current some day smoker SUBSTANCE USE: does not use ED Exam General Limitations: Present no limitations General appearance: Present alert, in no apparent distress and other (Patient is awake alert oriented not in distress nontoxic looking well-hydrated well-nourished) Head Head exam: Present atraumatic; Absent normocephalic or normal inspection Eye Eye exam: Present normal appearance, PERRL, EOMI and other ENT ENT exam: Present normal exam, normal oropharynx and mucous membranes moist Neck Neck exam: Present normal inspection, full ROM and trachea midline; Absent tenderness Chest Chest inspection: Present normal inspection and symmetric chest wall rise; Absent tenderness Respiratory Respiratory exam: Present normal lung sounds bilaterally; Absent respiratory distress, wheezes, stridor, accessory muscle use or prolonged expiratory phase Cardiovascular Cardiovascular exam: Present regular rate, normal rhythm and normal heart sounds; Absent bradycardia, tachycardia, irregular rhythm, systolic murmur or diastolic murmur Abdominal Exam Abdominal exam: Present soft and normal bowel sounds; Absent distention, tenderness, guarding, rebound, rigidity, diminished bowel sounds, hyperactive bowel sounds, hypoactive bowel sounds or organomegaly Extremities Exam Extremities exam: Present normal inspection and full ROM Back Exam Back exam: Present normal inspection and full ROM Neurological Exam Neurological exam: Present alert, oriented X3, CN II-XII intact, normal gait and reflexes normal; Absent motor sensory deficit Psychiatric Psychiatric exam: Present normal affect, normal mood, anxious and other (No hallucination no delusion); Absent depressed, agitated, flat affect, manic, homicidal ideation or suicidal ideation Skin Skin exam: Present warm, dry, intact and normal color Course Quality Measures none Orders Category Date Time Status EKG (ED ONLY) *Do not use* NOW Care 02/25/25 02:12 Completed EKG (ED ONLY) *Do not use* NOW Care 02/25/25 02:19 Completed EKG (ED Only) Stat Exams 02/25/25 02:12 Draft EKG (ED Only) Stat Exams 02/25/25 02:18 Ordered XR chest 1V portable Stat Exams 02/25/25 02:18 Taken BNP [B-Type Natriuretic Peptide] Stat Lab 02/25/25 02:47 Completed CBC Stat Lab 02/25/25 02:47 Completed CMP [Comprehensive Metabolic Panel] Stat Lab 02/25/25 02:47 Completed HCG,Qualitative Serum Stat Lab 02/25/25 02:47 Completed Troponin I Stat Lab 02/25/25 02:47 Completed LORazepam [Ativan] Med 02/25/25 04:48 Once 1 mg PO X1 ONE Vital Signs Vital signs: Vital Signs Temperature 98.8 F 02/25/25 02:12 Pulse Rate 88 02/25/25 02:12 Respiratory Rate 16 02/25/25 02:12 Blood Pressure 137/91 H 02/25/25 02:12 Pulse Oximetry (%) 100 02/25/25 02:12 Oxygen Delivery Method Room Air 02/25/25 02:12 Patient oxygen saturation is 100% on room air Chest Pain MDM Narrative MDM Narrative:: This is a case of 29-year-old female with history of anxiety came into the emergency room due to chest pain and palpitation for 1 day no shortness of breath persistence of the symptoms this patient decided to sought consult here in the emergency room physical examination patient is awake alert oriented not in distress nontoxic looking well-hydrated well-nourished vital signs stable BP stable nontachycardic nontachypneic afebrile and nonhypoxic lungs sound is clear no crackles no rales no retraction no stridor heart normal rate regular rhythm no murmur patient noted to be anxious no depression no suicidal no homicidal ideation blood test showed no leukocytosis no anemia kidney and liver function is normal no electrolyte imbalance patient troponin and BNP is normal EKG showed 83 sinus rhythm chest x-ray showed normal no cardiomegaly no infiltrates at this point patient chest pain is possible due to anxiety patient was given Ativan here in the emergency room and was discharged with hydroxyzine patient was advised to follow-up with PCP in 2 days for reevaluation and to be referred to sound technician supervisor for [place] for evaluation of chest pain for possible echocardiogram stress test and Holter monitor and to be referred to psychiatrist for anxiety and psychologist patient was advised if symptoms get worse return to the emergency room immediately or call 911 Patient was discharged with comfortable condition walking with stable gait. Patient verbalized no further complains explained diagnosis and answered patient question. Patient is comfortable with the proposed management plan including the need to follow up with his/her primary care physician and any specialist if applicable Discussed patient for any urgent condition or worsening sx, He/She needed to go to emergency room immediately or call 911. Patient acknowledge the responsibility to follow up as instructed and to monitor her/his symptoms. For any persistence of the symptoms for more than 3-5 days return precaution advised. Discussed the result of the test and was given printed discharge instruction Patient data External records reviewed:: [facility] previous records Clinical information provided by:: patient Social determinants that could affect healthcare access:: none Patient has the following chronic illnesses:: None How is presenting disease/condition affected by chronic disease/condition?: no chronic disease Evaluation data The following diagnostics were reviewed and interpreted by me:: lab results and radiology exam(s) Lab and/or radiology exams considered but not ordered:: Reviewed Interpretation Summary: Reviewed Medications / Prescriptions Medications or Prescriptions considered but not ordered:: Given Medication administrations:: Medication Administration History Lorazepam (Lorazepam 0.5 Mg Tablet) 1 mg PO X1 ONE Stop: 02/25/25 04:49 Given Consultations Consultation(s) initiated? (list below): No Diagnosis Chest Pain Differential Diagnosis: atypical chest pain, costochondritis, chest pain and other (Anxiety) Most likely diagnosis given after review of the tests above:: Chest pain of unknown etiology anxiety Admission Indicated Admission indicated?: not indicated Explain why admission is indicated or not indicated:: Not indicated Admission Request Was there a request for admission?: No Admission Attestation Admission request attestation: Not indicated Disposition Plan Disposition Plan: Discharge Discharge Attestation Discharge Attestation: The patient and all family members were given an opportunity to ask questions and understood the discharge instructions. Discharge instructions specifically effects, indications for sooner follow up or return to the emergency department, and the expected course of current diagnosis. Patient condition: Stable Discharge Plan Plan Patient Disposition: HOME (Self Care) Patient condition on transfer: Stable Prescriptions/Referrals Prescriptions/Med Rec: New ibuprofen 800 mg tablet 800 mg PO Q8H PRN (Reason: pain) Qty: 20 0RF hydroxyzine HCl 25 mg tablet 25 mg PO BID PRN (Reason: As needed for anxiety) Qty: 10 0RF No Action hydrocodone-acetaminophen 5-325 mg tablet 1 tab PO Q6H MDD 3 PRN (Reason: pain) Qty: 10 0RF Vitamin 27 mg iron- 800 mcg Tablet 1 tab PO QDAY hydrocodone-acetaminophen 5-325 mg tablet 1 tab PO BID MDD 10 PRN (Reason: pain) Qty: 10 0RF hydrocodone-acetaminophen 5-325 mg tablet 2 tab PO Q8H MDD 6 PRN (Reason: pain) Qty: 20 0RF lidocaine [Lidoderm] 5 % adhesive patch,medicated 2 patch topical QDAY PRN (Reason: pain) Qty: 30 0RF Rx Instructions: leave on most painful area for up to 12 hrs ibuprofen 600 mg tablet 600 mg PO TID PRN (Reason: fever or pain) Qty: 30 0RF ondansetron 4 mg tablet,disintegrating 4 mg PO Q8H PRN (Reason: nausea and vomiting) Qty: 20 0RF Referrals: Cristhian Griffin MD [Primary Care Provider] - In 1 week Problem List Clinical Impression: Chest pain of unknown etiology, Palpitations, Anxiety Patient/Caregiver Discharge Instructions Education Materials: ED Anxiety Reaction, ED Chest Pain, Uncertain Cause, ED Palpitations Additional Instructions: Follow-up with your primary care physician in 2 days for reevaluation and to be referred to sound technician supervisor for chest pain and palpitation for possible echocardiogram stress test and Holter monitor recurrence persistent worsening symptoms or any emergent concern call 911 or go to the nearest emergency room take your medication as directed keep hydrated it is also important to see a psychiatrist psychologist for your anxiety Print Language: Italian Stand Alone Forms: Marley Award Info., Patient Portal Info Letter PA/PANEL INSTRUMENT REPAIRER Supervising Physician PA/PANEL INSTRUMENT REPAIRER Supervising Physician: Dr. Henry
[2025-02-25 05:08] VITALS: BP 127/72; PULSE 86; RESP 18; TEMP 36.8; O2SAT 98
== END 2025-02-25 05:09 | disposition home or self-care (01) ==
PROVIDERS: Nurse Practitioner Family; Emergency Provider Emergency Medicine; PCP Family Medicine
DX: R07.9 Chest pain, unspecified (principal); R00.2 Palpitations; F41.9 Anxiety disorder, unspecified
CPT/HCPCS: 36415; 71045; 80053; 83880; 84484; 84703; 85025; 93005; 99284; A9270

== ENCOUNTER 2025-03-14 16:21 | Emergency (ER) | payer MEDICAID, SELFPAY ==
[2025-03-14 16:22] VITALS: BMI 25.7
--- NOTE | 2025-03-14 16:27 | EKG_ITS ---
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
--- NOTE | 2025-03-14 16:49 | XR_ITS ---
Examination: Abdomen sonogram, Limited Date and time of exam: March 30, 2025, 1702 hrs. Indications: Epigastric pain nausea vomiting beginning today. Technique: Real-time mccurdy scale transabdominal sonographic images of the upper abdomen obtained. Findings: Normal gallbladder. Normal common bile duct 0.3 cm. Pancreatic head 2.9 cm Liver 12.7 cm fatty infiltration no focal liver lesions Normal hepatopedal portal venous flow Patent IVC Impression: Normal gallbladder Fatty liver no focal liver lesions
--- NOTE | 2025-03-14 16:50 | XR_ITS ---
Examination: PA lateral chest 2 views Technique: Upright PA lateral chest 2 views Date and time: March 14, 2025, 1746 hrs. Indications: Chest pain upper abdominal pain beginning 2 days ago. Findings: Normal heart size. Lungs are clear. The osseous structures are intact. Impression: No active disease.
--- NOTE | 2025-03-14 16:50 | PD.EDRME ---
Rapid Medical Screening Exam RME Arrival date/time: 03/14/25 16:21 29-year-old female presents to the emergency room today for complaints of chest pain and upper abdominal pain Chief Complaint: Chest Pain
[2025-03-14 16:52] VITALS: BP 123/72; PULSE 76; RESP 16; TEMP 36.9; O2SAT 97
[2025-03-14 17:19] LABS: Basophils # (Auto) 0.1 Thou/mm3 (0.0-0.2); Basophils % (Auto) 1 % (0-2.5); Eosinophils # (Auto) 0.1 Thou/mm3 (0.0-0.5); Eosinophils % (Auto) 1 % (0-10); Hematocrit 35.3 % (36.0-46.0); Hemoglobin 10.9 g/dL (12.0-16.0); Immature Granulocytes Auto 0.01 Thou/mm3 (0.00-0.00); Lymphocytes # (Auto) 1.6 Thou/mm3 (1.0-4.8); Lymphocytes % (Auto) 27 % (10-50); Mean Corpuscular HGB Conc 30.9 g/dl (31.0-37.0); Mean Corpuscular Hemoglobin 26.2 pg (25.0-35.0); Mean Corpuscular Volume 85 fL (80-100); Monocytes # (Auto) 0.4 Thou/mm3 (0.0-0.8); Monocytes % (Auto) 7 % (0-12); Neutrophils # (Auto) 3.7 Thou/mm3 (1.8-7.7); Neutrophils % (Auto) 64 % (37-80); Nucleated Red Blood Cell # 0.00 Thou/mm3 (0.00-0.00); Nucleated Red Blood Cell % 0 /100 WBC (0); Platelet Count 279 Thou/mm3 (140-440); RDW Standard Deviation 42.5 fL (36.4-46.3); Red Blood Count 4.16 Miln/mm3 (4.00-5.20); White Blood Count 5.7 Thou/mm3 (3.6-11.0)
[2025-03-14 17:38] LABS: Collection Type, Urine Clean Catch
[2025-03-14 17:42] LABS: Bilirubin,Urine Negative (Negative); Blood,Urine Negative (Negative); Clarity,Urine Clear (Clear/Hazy); Color,Urine Lt-Yellow (Lt Yel-Yel); Culture Indicated,Urine Not Indicated; Glucose, Urine Negative (Negative); Ketones,Urine Negative (Negative); Leukocyte Esterase,Urine Negative (Negative); Nitrite,Urine Negative (Negative); PH,Urine 6.0 (5.0-7.0); Protein,Urine Negative (Neg - Trace); RBC,Urine 2 /hpf (0-3); Specific Gravity,Urine 1.022 (1.001-1.035); Squamous Epithelial Cell,Urine 3 /hpf (0-5); Urobilinogen,Urine Negative mg/dL (0.0-1.0); WBC,Urine 1 /hpf (0-5)
[2025-03-14 17:46] LABS: Alanine Aminotransferase 11 U/L (10-49); Albumin, Serum 4.1 gm/dL (3.5-5.0); Albumin/Globulin Ratio 1.6 (1.2-2.2); Alkaline Phosphatase 46 U/L (46-116); Anion Gap 8 (7-16); Aspartate Amino Transferase 14 U/L (0-34); BUN/Creatinine Ratio 13 Ratio (12-20); Bilirubin,Total 0.3 mg/dL (0.3-1.2); Blood Urea Nitrogen 8 mg/dL (9-23); Calcium 8.9 mg/dL (8.3-10.6); Calcium (Corrected) 8.9 mg/dL (8.5-10.1); Carbon Dioxide 25.6 mMol/L (20.0-31.0); Chloride 106 mMol/L (98-107); Creatinine (Component) 0.6 mg/dL (0.6-1.3); Estimated Creatinine Clearance 123.9 mL/min (>60); Free T4 (Free Thyroxine) 1.17 ng/dL (0.89-1.76); Globulin 2.5 gm/dL (2.3-3.5); Glucose 104 mg/dL (74-106); Osmolality,Calculated 277 (275-295); Potassium 3.9 mMol/L (3.4-5.1); Sodium 140 mMol/L (136-145); Thyroid Stimulating Hormone 0.56 uIU/mL (0.55-4.78); Total Protein 6.6 gm/dL (5.7-8.2); Troponin I < 0.002 ng/mL (0.0-0.045); eGFR > 60 See Note
[2025-03-14 17:46] LABS: HCG Qualitative,Urine Negative
[2025-03-14 17:52] LABS: Amphetamine/Methamp Scrn,U Negative (Negative); Barbiturate Screen,Urine Negative (Negative); Benzodiazepines Screen,Urine Negative (Negative); Benzoylecgonine Screen, Ur Negative (Negative); Fentanyl Screen,Urine Negative (Negative); Opiate Screen,Urine Negative (Negative); THC Screen,Urine Negative (Negative)
--- NOTE | 2025-03-14 21:22 | EDNOTE_ITS ---
ED Abdominal Pain RME/HPI General Chief Complaint: Chest Pain Stated complaint: CHEST PAIN, PALPITATIONS, ABD PAIN Time seen by provider: 03/14/25 20:33 Arrival date/time: 03/14/25 16:21 RME / HPI RME / HPI narrative: 29-year-old female presents to the emergency room today for complaints of chest pain and upper abdominal pain. This been ongoing since earlier today, severity of symptoms moderate, described as burning-like sensation. Denies any vomiting denies any fever denies any cough denies any other complaints no medications taken prior to arrival. Related Data Home Medications ?Medication ?Instructions ?Recorded ?Confirmed vits no.124-ferrous fum 1 tab PO QDAY 9 04/11/19 27 mg iron-folic acid 800 mcg tablet ( Vitamin) Previous Rx's ?Medication ?Instructions ?Recorded hydrocodone 5 mg-acetaminophen 325 1 tab PO Q6H PRN pa in #10 tabs 10/09/21 mg tablet hydrocodone 5 mg-acetaminophen 325 1 tab PO BID PRN pa in #10 tabs 04/16/24 mg tablet hydrocodone 5 mg-acetaminophen 325 2 tab PO Q8H PRN pa in #20 tabs 11/11/24 mg tablet ibuprofen 600 mg tablet 600 mg PO TID PRN fever or p ain 11/11/24 #30 tabs lidocaine 5 % topical patch 2 patch topical QDAY PRN p ain #30 11/11/24 (Lidoderm) ea ondansetron 4 mg disintegrating 4 mg PO Q8H PRN nausea and 12/30/24 tablet vomiting #20 tabs hydroxyzine HCl 25 mg tablet 25 mg PO BID PRN As neede d for 02/25/25 anxiety #10 tabs ibuprofen 800 mg tablet 800 mg PO Q8H PRN pain #20 t abs 02/25/25 famotidine 40 mg tablet (Pepcid) 40 mg PO BID #20 tabs 03/14/25 metoclopramide HCl 10 mg tablet 10 mg PO Q6H PRN nause a and 03/14/25 (Reglan) vomiting #20 tabs polyethylene glycol 3350 17 gram 17 g PO QDAY #30 ea 0 03/14/25 oral powder packet (Miralax) Allergies Allergy/AdvReac Type Severity Reaction Status Date / Time No Known Allergies Allergy Verified 03/14/25 16:22 Review of Systems Review of Systems Narrative Review of Systems: Review of system reviewed and within normal limits except mentioned in HPI ED Exam Narrative Physical exam: VITAL SIGNS: Reviewed. GENERAL APPEARANCE: Alert and interactive, follows commands, no acute distress, HEAD AND FACE: Non-traumatic. ENT: PERRL, pink conjunctivitis, eyelid no trauma, Mucous membrane moist. NECK: Supple, nontender, no nuchal rigidity. CHEST: No tenderness, no crepitus, no paradoxical movement, no retractions. LUNGS: Clear, well ventilated, symmetric, no rales, no wheezing, no ronchi, no stridor, good breath sounds bilaterally. HEART: Regular rate, regular rhythm, no murmur, no gallops. ABDOMEN: Soft, positive bowel sounds, nondistended, no guarding, epigastric tenderness, no rebound, no masses, RECTAL: Deferred. GENITAL: Deferred. NEUROLOGICAL: Gross motor function intact sensory function intact, Appropriate for age. MUSCULOSKELETAL: low back nontender, full range of motion. EXTREMITIES: Nontender, full range of motion. SKIN: Color pink, dry, no rash, no lacerations, no abrasions, no contusions. LYMPHATICS: Deferred. Course Quality Measures none Orders Category Date Time Status EKG (ED ONLY) *Do not use* NOW Care 03/14/25 16:28 Completed EKG (ED Only) Stat Exams 03/14/25 16:27 Draft US gall bladder Stat Exams 03/14/25 16:49 Completed XR chest 2V Stat Exams 03/14/25 16:50 Completed CBC Stat Lab 03/14/25 16:58 Completed Comprehensive Metabolic Panel Stat Lab 03/14/25 16:58 Completed Drug Screen,Urine Stat Lab 03/14/25 17:29 Completed Free T4 (Free Thyroxine) Stat Lab 03/14/25 16:58 Completed HCG Qualitative,Urine Stat Lab 03/14/25 17:29 Completed TSH [Thyroid Stimulating Hormone] Stat Lab 03/14/25 16:58 Completed Troponin I Stat Lab 03/14/25 16:58 Completed Urinalysis, C/S if Indicated Stat Lab 03/14/25 17:29 Completed Vital Signs Vital signs: Vital Signs Temperature 98.4 F 03/14/25 16:52 Pulse Rate 76 03/14/25 16:52 Respiratory Rate 16 03/14/25 16:52 Blood Pressure 123/72 03/14/25 16:52 Pulse Oximetry (%) 97 03/14/25 16:52 Oxygen Delivery Method Room Air 03/14/25 16:52 Abdominal Pain [facility] Narrative [facility] Narrative:: 29-year-old female presents to the emergency room today for complaints of chest pain and upper abdominal pain. This been ongoing since earlier today, severity of symptoms moderate, described as burning-like sensation. Denies any vomiting denies any fever denies any cough denies any other complaints no medications taken prior to arrival. EKG showed sinus rhythm, ventricular rate of 81 bpm, no ST segment elevation or depression noted. Patient's workup today including troponin all came back normal. Urinalysis no UTI. Patient is probably having GERD causing chest pain. Stable for discharge home. Patient data External records reviewed:: None Clinical information provided by:: patient Social determinants that could affect healthcare access:: none Patient has the following chronic illnesses:: None How is presenting disease/condition affected by chronic disease/condition?: no chronic disease Evaluation data The following diagnostics were reviewed and interpreted by me:: lab results, radiology exam(s) and EKG tracing(s) Lab and/or radiology exams considered but not ordered:: None Interpretation Summary: See results [facility] Medications / Prescriptions Medications or Prescriptions considered but not ordered:: None Medication administrations:: None Consultations Consultation(s) initiated? (list below): No Diagnosis Differential diagnosis abdominal pain: abdominal pain, constipation and gastroenteritis Most likely diagnosis given after review of the tests above:: Chest pain secondary to GERD Admission Indicated Admission indicated?: not indicated Admission Request Was there a request for admission?: No Disposition Plan Disposition Plan: Discharge Discharge Attestation Discharge Attestation: The patient was given an opportunity to ask questions and understood the discharge instructions. Discharge instructions specifically effects, indications for sooner follow up or return to the emergency department, and the expected course of current diagnosis. Patient condition: Stable Discharge Plan Plan Patient Disposition: HOME (Self Care) Discharge Disposition comment: Stable Prescriptions/Referrals Prescriptions/Med Rec: New famotidine [Pepcid] 40 mg tablet 40 mg PO BID Qty: 20 0RF polyethylene glycol 3350 [Miralax] 17 gram powder in packet 17 g PO QDAY Qty: 30 0RF metoclopramide HCl [Reglan] 10 mg tablet 10 mg PO Q6H PRN (Reason: nausea and vomiting) Qty: 20 0RF No Action hydrocodone-acetaminophen 5-325 mg tablet 1 tab PO Q6H MDD 3 PRN (Reason: pain) Qty: 10 0RF Vitamin 27 mg iron- 800 mcg Tablet 1 tab PO QDAY hydrocodone-acetaminophen 5-325 mg tablet 1 tab PO BID MDD 10 PRN (Reason: pain) Qty: 10 0RF hydrocodone-acetaminophen 5-325 mg tablet 2 tab PO Q8H MDD 6 PRN (Reason: pain) Qty: 20 0RF lidocaine [Lidoderm] 5 % adhesive patch,medicated 2 patch topical QDAY PRN (Reason: pain) Qty: 30 0RF Rx Instructions: leave on most painful area for up to 12 hrs ibuprofen 600 mg tablet 600 mg PO TID PRN (Reason: fever or pain) Qty: 30 0RF ibuprofen 800 mg tablet 800 mg PO Q8H PRN (Reason: pain) Qty: 20 0RF hydroxyzine HCl 25 mg tablet 25 mg PO BID PRN (Reason: As needed for anxiety) Qty: 10 0RF ondansetron 4 mg tablet,disintegrating 4 mg PO Q8H PRN (Reason: nausea and vomiting) Qty: 20 0RF Referrals: Cristhian Griffin MD [Primary Care Provider] - In 1 week Problem List Clinical Impression: Chest pain due to GERD Patient/Caregiver Discharge Instructions Discharge Activity: activity as tolerated Education Materials: ED GERD (Adult) Additional Instructions: Thank you for the opportunity for serving you today. You are stable for discharged . You are advised to: Follow-up with your PCP in 1 to 2 days Return to ED for worsening of symptoms Increase oral fluids Take medication as prescribed Print Language: Persian Stand Alone Forms: Marley Award Info., Patient Portal Info Letter PA/COSMETIC ACCOUNT COORDINATOR Supervising Physician PA/COSMETIC ACCOUNT COORDINATOR Supervising Physician: MD Estela
[2025-03-14 21:35] VITALS: BP 114/69; PULSE 72; RESP 16; O2SAT 100
== END 2025-03-14 21:36 | disposition home or self-care (01) ==
PROVIDERS: Emergency Provider Nurse Practitioner Primary Care; PCP Family Medicine
DX: K21.9 Gastro-esophageal reflux disease without esophagitis (principal)
CPT/HCPCS: 36415; 71046; 76705; 80053; 80307; 81001; 81025; 84439; 84443; 84484; 85025; 93005; 99284

== ENCOUNTER 2025-04-27 23:07 | Emergency (ER) | payer MEDICAID, SELFPAY ==
[2025-04-27 23:08] VITALS: BMI 28.3
[2025-04-28 00:21] VITALS: BP 124/76; PULSE 74; RESP 18; TEMP 36.5; O2SAT 97
--- NOTE | 2025-04-28 00:32 | XR_ITS ---
EXAMINATION: PA chest single view TECHNIQUE: Upright PA chest single view Date and time: April 28, 2025, 0026 hours, comparison 03/14/2025 INDICATION: Chest pain shortness of breath today FINDINGS: Normal heart size The lungs are clear. The osseous structures are intact IMPRESSION: No active disease
--- NOTE | 2025-04-28 00:32 | PD.EDRME ---
Rapid Medical Screening Exam RME Arrival date/time: 04/27/25 23:07 This is a case of 29-year-old female with no medical history came into the emergency room due to chest pain palpitation shortness of breath today worsening of the symptoms this patient decided to start consult her in the emergency room Chief Complaint: Arrhythmia/Palpitations Time Seen by Provider: 04/28/25 00:31 Vital signs: Vital Signs Temperature 97.7 F 04/28/25 00:21 Pulse Rate 74 04/28/25 00:21 Respiratory Rate 18 04/28/25 00:21 Blood Pressure 124/76 04/28/25 00:21 Pulse Oximetry (%) 97 04/28/25 00:21 Oxygen Delivery Method Room Air 04/28/25 00:21 Exam: Patient is awake alert oriented not in distress nontoxic looking clear breath sounds heart normal rate regular rhythm no murmur Clinical Impression: Chest pain
[2025-04-28 01:18] LABS: Basophils # (Auto) 0.1 Thou/mm3 (0.0-0.2); Basophils % (Auto) 1 % (0-2.5); Eosinophils # (Auto) 0.2 Thou/mm3 (0.0-0.5); Eosinophils % (Auto) 2 % (0-10); Hematocrit 36.3 % (36.0-46.0); Hemoglobin 11.1 g/dL (12.0-16.0); Immature Granulocytes Auto 0.01 Thou/mm3 (0.00-0.00); Lymphocytes # (Auto) 1.6 Thou/mm3 (1.0-4.8); Lymphocytes % (Auto) 21 % (10-50); Mean Corpuscular HGB Conc 30.6 g/dl (31.0-37.0); Mean Corpuscular Hemoglobin 25.2 pg (25.0-35.0); Mean Corpuscular Volume 82 fL (80-100); Monocytes # (Auto) 0.6 Thou/mm3 (0.0-0.8); Monocytes % (Auto) 8 % (0-12); Neutrophils # (Auto) 5.5 Thou/mm3 (1.8-7.7); Neutrophils % (Auto) 69 % (37-80); Nucleated Red Blood Cell # 0.00 Thou/mm3 (0.00-0.00); Nucleated Red Blood Cell % 0 /100 WBC (0); Platelet Count 295 Thou/mm3 (140-440); RDW Standard Deviation 42.4 fL (36.4-46.3); Red Blood Count 4.41 Miln/mm3 (4.00-5.20); White Blood Count 8.0 Thou/mm3 (3.6-11.0)
[2025-04-28 01:31] LABS: D-Dimer 273 ng/mL (<600)
[2025-04-28 01:33] LABS: Alanine Aminotransferase 13 U/L (10-49); Albumin, Serum 4.5 gm/dL (3.5-5.0); Albumin/Globulin Ratio 1.6 (1.2-2.2); Alkaline Phosphatase 53 U/L (46-116); Anion Gap 7 (7-16); Aspartate Amino Transferase 16 U/L (0-34); BUN/Creatinine Ratio 16 Ratio (12-20); Bilirubin,Total 0.3 mg/dL (0.3-1.2); Blood Urea Nitrogen 8 mg/dL (9-23); Calcium 9.4 mg/dL (8.3-10.6); Calcium (Corrected) 9.4 mg/dL (8.5-10.1); Carbon Dioxide 30.9 mMol/L (20.0-31.0); Chloride 104 mMol/L (98-107); Creatinine (Component) 0.5 mg/dL (0.6-1.3); Estimated Creatinine Clearance 149.7 mL/min (>60); Globulin 2.9 gm/dL (2.3-3.5); Glucose 94 mg/dL (74-106); Osmolality,Calculated 281 (275-295); Potassium 3.8 mMol/L (3.4-5.1); Sodium 142 mMol/L (136-145); Total Protein 7.4 gm/dL (5.7-8.2); Troponin I < 0.002 ng/mL (0.0-0.045); eGFR > 60 See Note
[2025-04-28 01:38] LABS: B-Type Natriuretic Peptide < 20 pg/mL (0-100)
--- NOTE | 2025-04-28 01:40 | EDNOTE_ITS ---
ED Arrhythmia Palp. RME/HPI General Chief Complaint: Arrhythmia/Palpitations Stated Complaint: CHEST PALPITATIONS, SOB, DIZZINESS Time Seen by Provider: 04/28/25 00:31 Arrival date/time: 04/27/25 23:07 RME / HPI RME / HPI narrative: 04/27/25 23:07 This is a case of 29-year-old female with no medical history came into the emergency room due to chest pain palpitation shortness of breath today worsening of the symptoms this patient decided to start consult her in the emergency room DR. MOCTEZUMA MAIN ED EVALUATION: Patient presenting with intermittent/episodic shortness of breath associated with palpitations and chest pain for several months duration. Episodes lasting for days and tend to be worse with exertion without pleuritic component. Denies fever, chills, URI, or cough. Does report lightheadedness and occasional near- syncope. PMH: Depression & Anxiety Cardiac Risk Factors: Family Hx and Tobacco use, No DM PE Risk Factors: Recent prolonged travel and tobacco, no COPD, DVT or recent surgeries PSH: no-contributory Allergies: None Social: Tobacco, Denies alcohol or illicit drug abuse Exam: Patient is awake alert oriented not in distress nontoxic looking clear breath sounds heart normal rate regular rhythm no murmur Impression: Chest pain Related Data Home Medications ?Medication ?Instructions ?Recorded ?Confirmed vits no.124-ferrous fum 1 tab PO QDAY 9 04/11/19 27 mg iron-folic acid 800 mcg tablet ( Vitamin) Previous Rx's ?Medication ?Instructions ?Recorded hydrocodone 5 mg-acetaminophen 325 1 tab PO Q6H PRN pa in #10 tabs 10/09/21 mg tablet hydrocodone 5 mg-acetaminophen 325 1 tab PO BID PRN pa in #10 tabs 04/16/24 mg tablet hydrocodone 5 mg-acetaminophen 325 2 tab PO Q8H PRN pa in #20 tabs 11/11/24 mg tablet ibuprofen 600 mg tablet 600 mg PO TID PRN fever or p ain 11/11/24 #30 tabs lidocaine 5 % topical patch 2 patch topical QDAY PRN p ain #30 11/11/24 (Lidoderm) ea ondansetron 4 mg disintegrating 4 mg PO Q8H PRN nausea and 12/30/24 tablet vomiting #20 tabs hydroxyzine HCl 25 mg tablet 25 mg PO BID PRN As neede d for 02/25/25 anxiety #10 tabs ibuprofen 800 mg tablet 800 mg PO Q8H PRN pain #20 t abs 02/25/25 famotidine 40 mg tablet (Pepcid) 40 mg PO BID #20 tabs 03/14/25 metoclopramide HCl 10 mg tablet 10 mg PO Q6H PRN nause a and 03/14/25 (Reglan) vomiting #20 tabs polyethylene glycol 3350 17 gram 17 g PO QDAY #30 ea 0 03/14/25 oral powder packet (Miralax) Allergies Allergy/AdvReac Type Severity Reaction Status Date / Time No Known Allergies Allergy Verified 04/27/25 23:07 Review of Systems Review of Systems Systems Reviewed: All systems reviewed, normal except as documented Past Medical History Past Medical History PSYCHO/SOCIAL: Positive Depression and Anxiety Family History FAMILY HISTORY: Positive Family Cardiac Disorders (FATHER , GRANDFATHER) and Family Cancer (GRANDMOTHER BREAST CANCER) Social History SMOKING STATUS: Current some day smoker ED Exam Narrative Physical exam: GEN. APPEARANCE: The patient is alert awake oriented X-3 under no distress, lying down comfortably, does not look ill/toxic. Patient has good eye contact. Patient is cooperative. VITALS: All vitals were reviewed and the pulse ox is 97%, which is normal according to my interpretation HEENT: Normocephalic, atraumatic and nontender. Pupils are equal and reactive. Oral mucosa is moist. NECK: Supple, nontender, no meningismus, no JVD. There is no thyromegaly and no lymphadenopathy. CHEST: Nontender on palpation no deformity and no crepitus. CARDIOVASCULAR: Heart regular rhythm, murmur, no systolic click, or gallop rub or extra beats. LUNGS: Clear to auscultation bilaterally with symmetrical chest rise. No laboring tachypnea or wheezing. No intercostal subcostal retraction. No rales and no rhonchi. ABDOMEN: Soft, flat, nontender to palpation, no guarding or rebound tenderness. There are no abnormal masses palpated. No pulsatile masses or bruits. Active and normal bowel sounds. EXTREMITIES: Normal inspection and palpation. No edema. No cyanosis. Patient is able to move all 4 extremities well SKIN: Warm and dry, no rashes noted. MUSCULOSKELETAL: No lumbar or midline bony tenderness. There is no CVA tend erness. No paraspinal muscle spasm or tenderness. NEURO: Cranial nerves II through XII grossly intact. There are no focal neurologic deficits noted. GCS is 15 PSYCHIATRIC: Patient is in normal mood and affect, cooperative. LYMPHATICS: No major lymphadenopathy noted. Course Quality Measures none Orders Category Date Time Status EKG (ED ONLY) *Do not use* NOW Care 04/27/25 23:10 Completed EKG (ED Only) Stat Exams 04/27/25 23:10 Ordered XR chest 1V Stat Exams 04/28/25 00:32 Taken BNP [B-Type Natriuretic Peptide] Stat Lab 04/28/25 01:07 Completed CBC Stat Lab 04/28/25 01:07 Completed Comprehensive Metabolic Panel Stat Lab 04/28/25 01:07 Completed D-Dimer Stat Lab 04/28/25 01:07 Completed HCG Qualitative,Urine Stat Lab 04/28/25 00:32 Ordered Troponin I Stat Lab 04/28/25 01:07 Completed Urinalysis Stat Lab 04/28/25 00:32 Ordered Vital Signs Vital signs: Vital Signs Temperature 97.7 F 04/28/25 00:21 Pulse Rate 74 04/28/25 00:21 Respiratory Rate 18 04/28/25 00:21 Blood Pressure 124/76 04/28/25 00:21 Pulse Oximetry (%) 97 04/28/25 00:21 Oxygen Delivery Method Room Air 04/28/25 00:21 Arrhythmia/Palpitations MDM Narrative MDM Narrative:: Scribe Attestation: Yeimi Morejon am scribing for and in the presence of Dr. Moctezuma. Provider Notation: Although this document has been carefully reviewed, there may still be some phonetic and other typographical errors. These errors are purely grammatical due to imperfections in the software program and should not be construed in any way to compromise the substance of the patient's medical care during this visit. Please see PE findings. Laboratory markers, inclluding CBC and serum chemistries demonstrate mild anemia with hemoglobin of 11.1, no thrombocytopenia or left shift. Serum chemistries demonstrate normal Potassium of 3.8. UA without evidence of infection. EKG interpretted by ED Physician demonstrates normal sinus rhythm without acute signs of acute pathway, brugada, or prolonged QT interval. CXR is unremarkable. Patient was observed for extended period of time and remained asymptomatic throughout ED course. Potassium orally replaced and will be recommended close F/U with PMD for remote heart monitoring and echocardiography. Patient data External records reviewed:: [facility] previous records (Reviewed prior ED records from 03/14/25. Patient was seen for Chest pain due to GERD.) Clinical information provided by:: patient Social determinants that could affect healthcare access:: none Patient has the following chronic illnesses:: Anxiety, Depression How is presenting disease/condition affected by chronic disease/condition?: exacerbated by Evaluation data The following diagnostics were reviewed and interpreted by me:: lab results, radiology exam(s) and EKG tracing(s) (EKG demonstrates normal sinus rhythm without acute signs of acute pathway, brugada, or prolonged QT interval, per my interpretation.) Lab and/or radiology exams considered but not ordered:: None Interpretation Summary: RADIOLOGY Chest X-Ray: Pending official radiology report. Medications / Prescriptions Medications or Prescriptions considered but not ordered:: None Medication administrations:: See above if any Consultations Consultation(s) initiated? (list below): No Diagnosis Differential diagnosis arrhythmia/palpitations: palpitations, anxiety, artial fibrillation, artial flutter, ventricular premature beats and ventricular tachycardia Most likely diagnosis given after review of the tests above:: Palpitations Admission Indicated Admission indicated?: not indicated Explain why admission is indicated or not indicated:: Patient does not meet admission criteria Admission Request Was there a request for admission?: No Disposition Plan Disposition Plan: Discharge Discharge Attestation Discharge Attestation: The patient and all family members were given an opportunity to ask questions and understood the discharge instructions. Discharge instructions specifically effects, indications for sooner follow up or return to the emergency department, and the expected course of current diagnosis. Patient condition: Stable Discharge Plan Plan Patient Disposition: HOME (Self Care) Discharge Disposition comment: STABLE Prescriptions/Referrals Prescriptions/Med Rec: No Action hydrocodone-acetaminophen 5-325 mg tablet 1 tab PO Q6H MDD 3 PRN (Reason: pain) Qty: 10 0RF Vitamin 27 mg iron- 800 mcg Tablet 1 tab PO QDAY hydrocodone-acetaminophen 5-325 mg tablet 1 tab PO BID MDD 10 PRN (Reason: pain) Qty: 10 0RF hydrocodone-acetaminophen 5-325 mg tablet 2 tab PO Q8H MDD 6 PRN (Reason: pain) Qty: 20 0RF lidocaine [Lidoderm] 5 % adhesive patch,medicated 2 patch topical QDAY PRN (Reason: pain) Qty: 30 0RF Rx Instructions: leave on most painful area for up to 12 hrs ibuprofen 600 mg tablet 600 mg PO TID PRN (Reason: fever or pain) Qty: 30 0RF ibuprofen 800 mg tablet 800 mg PO Q8H PRN (Reason: pain) Qty: 20 0RF hydroxyzine HCl 25 mg tablet 25 mg PO BID PRN (Reason: As needed for anxiety) Qty: 10 0RF famotidine [Pepcid] 40 mg tablet 40 mg PO BID Qty: 20 0RF polyethylene glycol 3350 [Miralax] 17 gram powder in packet 17 g PO QDAY Qty: 30 0RF metoclopramide HCl [Reglan] 10 mg tablet 10 mg PO Q6H PRN (Reason: nausea and vomiting) Qty: 20 0RF ondansetron 4 mg tablet,disintegrating 4 mg PO Q8H PRN (Reason: nausea and vomiting) Qty: 20 0RF Referrals: Cristhian Griffin MD [Primary Care Provider] - In 1 week Problem List Clinical Impression: Palpitations Patient/Caregiver Discharge Instructions Discharge Activity: activity as tolerated Diet Instructions: Increase fluid hydration. Education Materials: Your Heart's Electrical System, ED About Arrhythmias, ED Palpitations Additional Instructions: Avoid heart stimulants i.e. energy drinks, excessive caffeine/chocolate. Follow-up with primary care for outpatient remote heart monitoring and echocardiography. Print Language: Montenegrin Stand Alone Forms: [facility] Award Info., Patient Portal Info Letter
[2025-04-28 02:21] LABS: Collection Type, Urine Clean Catch
[2025-04-28 02:26] LABS: HCG Qualitative,Urine Negative
[2025-04-28 02:41] LABS: Amorphous Crystals,Urine Present (Absent); Bilirubin,Urine Negative (Negative); Blood,Urine Negative (Negative); Budding Yeast,Urine Present; Clarity,Urine Turbid (Clear/Hazy); Color,Urine Yellow (Lt Yel-Yel); Glucose, Urine Negative (Negative); Ketones,Urine Negative (Negative); Leukocyte Esterase,Urine Negative (Negative); Nitrite,Urine Negative (Negative); PH,Urine 7.5 (5.0-7.0); Protein,Urine Negative (Neg - Trace); RBC,Urine 6 /hpf (0-3); Specific Gravity,Urine 1.019 (1.001-1.035); Squamous Epithelial Cell,Urine 6 /hpf (0-5); Urobilinogen,Urine Negative mg/dL (0.0-1.0); WBC,Urine 36 /hpf (0-5)
[2025-04-28 02:59] VITALS: BP 113/73; PULSE 65; RESP 17; TEMP 36.6; O2SAT 100
== END 2025-04-28 03:07 | disposition home or self-care (01) ==
PROVIDERS: Nurse Practitioner Family; Emergency Provider Emergency Medicine; PCP Family Medicine
DX: I49.9 Cardiac arrhythmia, unspecified (principal)
CPT/HCPCS: 36415; 71045; 80053; 81001; 81025; 83880; 84484; 85025; 85379; 93005; 99283

== ENCOUNTER 2025-05-01 15:56 | Emergency (ER) | payer MEDICAID, SELFPAY ==
[2025-05-01 15:57] VITALS: BMI 27.4
[2025-05-01 16:51] VITALS: BP 115/75; PULSE 72; RESP 18; TEMP 36.9; O2SAT 100
--- NOTE | 2025-05-01 17:07 | XR_ITS ---
EXAMINATION: PA lateral chest 2 views TECHNIQUE: Upright PA lateral chest 2 views Date and time: May 01, 2025, 1716 hours, comparison April 28, 2025 INDICATIONS: Chest pain shortness of breath dizziness beginning 5 days ago. FINDINGS: Normal heart size Lungs are clear. The osseous structures are intact IMPRESSION: No active disease
--- NOTE | 2025-05-01 17:07 | EKG_ITS ---
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
--- NOTE | 2025-05-01 17:12 | PD.EDRME ---
Rapid Medical Screening Exam [facility] Arrival date/time: 05/01/25 15:56 29-year-old female history of anxiety presents to the emergency room today for complaints of chest pain and upper abdominal pain Chief Complaint: Chest Pain Time Seen by Provider: 05/01/25 16:49 Vital signs: Vital Signs Temperature 98.5 F 05/01/25 16:51 Pulse Rate 72 05/01/25 16:51 Respiratory Rate 18 05/01/25 16:51 Blood Pressure 115/75 05/01/25 16:51 Pulse Oximetry (%) 100 05/01/25 16:51 Oxygen Delivery Method Room Air 05/01/25 16:51 Exam: On exam patient well-appearing patient not appear ill or toxic Heart sounds normal lung sounds clear Clinical Impression: Lab work and imaging obtained
[2025-05-01 17:45] LABS: Amphetamine/Methamp Scrn,U Negative (Negative); Barbiturate Screen,Urine Negative (Negative); Benzodiazepines Screen,Urine Negative (Negative); Benzoylecgonine Screen, Ur Negative (Negative); Fentanyl Screen,Urine Negative (Negative); Opiate Screen,Urine Negative (Negative); THC Screen,Urine Negative (Negative)
[2025-05-01 17:48] LABS: Basophils # (Auto) 0.1 Thou/mm3 (0.0-0.2); Basophils % (Auto) 1 % (0-2.5); Eosinophils # (Auto) 0.0 Thou/mm3 (0.0-0.5); Eosinophils % (Auto) 1 % (0-10); Hematocrit 37.2 % (36.0-46.0); Hemoglobin 11.4 g/dL (12.0-16.0); Immature Granulocytes Auto 0.01 Thou/mm3 (0.00-0.00); Lymphocytes # (Auto) 1.2 Thou/mm3 (1.0-4.8); Lymphocytes % (Auto) 20 % (10-50); Mean Corpuscular HGB Conc 30.6 g/dl (31.0-37.0); Mean Corpuscular Hemoglobin 25.0 pg (25.0-35.0); Mean Corpuscular Volume 82 fL (80-100); Monocytes # (Auto) 0.4 Thou/mm3 (0.0-0.8); Monocytes % (Auto) 7 % (0-12); Neutrophils # (Auto) 4.3 Thou/mm3 (1.8-7.7); Neutrophils % (Auto) 72 % (37-80); Nucleated Red Blood Cell # 0.00 Thou/mm3 (0.00-0.00); Nucleated Red Blood Cell % 0 /100 WBC (0); Platelet Count 332 Thou/mm3 (140-440); RDW Standard Deviation 41.0 fL (36.4-46.3); Red Blood Count 4.56 Miln/mm3 (4.00-5.20); White Blood Count 6.0 Thou/mm3 (3.6-11.0)
[2025-05-01 18:12] LABS: HCG,Qualitative Serum Negative
[2025-05-01 18:21] LABS: Alanine Aminotransferase 11 U/L (10-49); Albumin, Serum 4.7 gm/dL (3.5-5.0); Albumin/Globulin Ratio 1.9 (1.2-2.2); Alkaline Phosphatase 57 U/L (46-116); Anion Gap 10 (7-16); Aspartate Amino Transferase 18 U/L (0-34); BUN/Creatinine Ratio 15 Ratio (12-20); Bilirubin,Total 0.4 mg/dL (0.3-1.2); Blood Urea Nitrogen 9 mg/dL (9-23); Calcium 8.7 mg/dL (8.3-10.6); Calcium (Corrected) 8.7 mg/dL (8.5-10.1); Carbon Dioxide 25.8 mMol/L (20.0-31.0); Chloride 106 mMol/L (98-107); Creatinine (Component) 0.6 mg/dL (0.6-1.3); Estimated Creatinine Clearance 122.8 mL/min (>60); Free T4 (Free Thyroxine) 1.12 ng/dL (0.89-1.76); Globulin 2.5 gm/dL (2.3-3.5); Glucose 103 mg/dL (74-106); Osmolality,Calculated 281 (275-295); Potassium 3.9 mMol/L (3.4-5.1); Sodium 142 mMol/L (136-145); Thyroid Stimulating Hormone 0.49 uIU/mL (0.55-4.78); Total Protein 7.2 gm/dL (5.7-8.2); Troponin I < 0.002 ng/mL (0.0-0.045); eGFR > 60 See Note
[2025-05-01 18:22] LABS: D-Dimer < 250 ng/mL (<600)
--- NOTE | 2025-05-01 23:16 | PD.EDCHEST ---
ED Chest Pain RME/HPI General Chief Complaint: Chest Pain Stated Complaint: CHEST PAIN W/ SOB X4 DAYS Time Seen by Provider: 05/01/25 16:49 Arrival date/time: 05/01/25 15:56 RME / HPI RME / HPI narrative: 05/01/25 15:56 29-year-old female history of anxiety presents to the emergency room today for complaints of chest pain and upper abdominal pain Dr. Henry?s Main ED Evaluation: 29yo female Related Data Home Medications ?Medication ?Instructions ?Recorded ?Confirmed vits no.124-ferrous fum 1 tab PO QDAY 03/19/19 04/11/19 27 mg iron-folic acid 800 mcg tablet ( Vitamin) Previous Rx's ?Medication ?Instructions ?Recorded hydrocodone 5 mg-acetaminophen 325 1 tab PO Q6H PRN pain #10 tabs 10/09/21 mg tablet hydrocodone 5 mg-acetaminophen 325 1 tab PO BID PRN pain #10 tabs 04/16/24 mg tablet hydrocodone 5 mg-acetaminophen 325 2 tab PO Q8H PRN pain #20 tabs 11/11/24 mg tablet ibuprofen 600 mg tablet 600 mg PO TID PRN fever or pain 11/11/24 #30 tabs lidocaine 5 % topical patch 2 patch topical QDAY PRN pain #30 11/11/24 (Lidoderm) ea ondansetron 4 mg disintegrating 4 mg PO Q8H PRN nausea and 12/30/24 tablet vomiting #20 tabs hydroxyzine HCl 25 mg tablet 25 mg PO BID PRN As needed for 02/25/25 anxiety #10 tabs ibuprofen 800 mg tablet 800 mg PO Q8H PRN pain #20 tabs 02/25/25 famotidine 40 mg tablet (Pepcid) 40 mg PO BID #20 tabs 03/14/25 metoclopramide HCl 10 mg tablet 10 mg PO Q6H PRN nausea and 03/14/25 (Reglan) vomiting #20 tabs polyethylene glycol 3350 17 gram 17 g PO QDAY #30 ea 03/14/25 oral powder packet (Miralax) Allergies Allergy/AdvReac Type Severity Reaction Status Date / Time No Known Allergies Allergy Verified 05/01/25 16:01 Review of Systems Review of Systems Systems Reviewed: All systems reviewed, normal except as documented Past Medical History Past Medical History NEUROLOGIC: Negative Neurological Disorders CARDIAC: Negative Cardiac Disorders or Congestive Heart Failure RESPIRATORY: Negative Chronic Obstructive Pulmonary Disease (COPD) or Asthma GASTROINTESTINAL: Negative Gastrointestinal Disorders GENITOURINARY: Negative Genitourinary Disorders or Renal Disease MUSCULOSKELETAL: Negative Musculoskeletal Disorders ENDOCRINE: Negative Endocrine Disorders, Diabetes Mellitus Type 1 or Diabetes Mellitus Type 2 HEMATOLOGIC: Negative Blood Disorders or Sickle Cell Disease PSYCHO/SOCIAL: Positive Depression and Anxiety OTHER HISTORY: Negative Hospitalization, Autoimmune Disease, Down Syndrome, Developmental Delay, Falls, Blood Transfusions, Blood Transfusion Reaction, Anesthesia Reactions, Organ Transplant, Chemotherapy, Radiation Therapy, Hyperbaric Therapy, MRSA, VRSA, Vancomycin-Resistant Enterococci or Cancer Family History FAMILY HISTORY: Positive Family Cardiac Disorders (FATHER , GRANDFATHER) and Family Cancer (GRANDMOTHER BREAST CANCER); Negative Family Psychiatric Problems, Family Respiratory Disorders, Family Gastrointestinal Problems, Family Surgery or Family Anesthesia Reaction Surgical History SURGICAL: Negative Section or Organ Transplant Social History SMOKING STATUS: Current some day smoker SUBSTANCE USE: does not use Course Course Course Narrative: CXR is ordered for determining the etiology of chest pain. Quality Measures none Orders Category Date Time Status EKG (ED ONLY) *Do not use* NOW Care 05/01/25 17:07 Completed EKG (ED Only) Stat Exams 05/01/25 17:07 Draft XR chest 2V Stat Exams 05/01/25 17:07 Completed CBC Stat Lab 05/01/25 17:26 Completed Comprehensive Metabolic Panel Stat Lab 05/01/25 17:26 Completed D-Dimer Stat Lab 05/01/25 17:26 Completed Drug Screen,Urine Stat Lab 05/01/25 17:20 Completed Free T4 (Free Thyroxine) Stat Lab 05/01/25 17:26 Completed HCG,Qualitative Serum Stat Lab 05/01/25 17:26 Completed TSH [Thyroid Stimulating Hormone] Stat Lab 05/01/25 17:26 Completed Troponin I Stat Lab 05/01/25 17:26 Completed Vital Signs Vital signs: Vital Signs Temperature 98.5 F 05/01/25 16:51 Pulse Rate 72 05/01/25 16:51 Respiratory Rate 18 05/01/25 16:51 Blood Pressure 115/75 05/01/25 16:51 Pulse Oximetry (%) 100 05/01/25 16:51 Oxygen Delivery Method Room Air 05/01/25 16:51 Chest Pain MDM Narrative MDM Narrative:: Scribe Attestation: 05/01/25 - Trini Morejon am scribing for and in the presence of Dr. Henry. Patient data External records reviewed:: [facility] previous records (Per chart review, patient was seen here on 04/28/25 for palpitations.) Clinical information provided by:: patient Social determinants that could affect healthcare access:: mental health Patient has the following chronic illnesses:: anxiety How is presenting disease/condition affected by chronic disease/condition?: exacerbated by Evaluation data The following diagnostics were reviewed and interpreted by me:: lab results, radiology exam(s) and EKG tracing(s) Lab and/or radiology exams considered but not ordered:: none Interpretation Summary: [place] [facility] Report Signed Patient: RADHA PATTERSON [facility]. Record#: [id number] Birthdate: 1995 Age/Sex: 29 / F [facility] Attending Dr: Ordering Physician: Emily (JOSE)Mitch NP Date of Service: 05/01/25 Procedure(s): XR chest 2V Accession Number(s): [id number] cc: Emily (JOSE),Mitch GARCIA; Alex Hernandez MD~ EXAMINATION: PA lateral chest 2 views TECHNIQUE: Upright PA lateral chest 2 views Date and time: May 01, 2025, 1716 hours, comparison April 28, 2025 INDICATIONS: Chest pain shortness of breath dizziness beginning 5 days ago. FINDINGS: Normal heart size Lungs are clear. The osseous structures are intact IMPRESSION: No active disease Dictated By: Alex Hernandez MD Signed By: <Electronically signed by Alex Hernandez MD in OV> 05/01/25 1800 Medications / Prescriptions Medications or Prescriptions considered but not ordered:: none Discharge Plan Prescriptions/Referrals Prescriptions/Med Rec: No Action hydrocodone-acetaminophen 5-325 mg tablet 1 tab PO Q6H MDD 3 PRN (Reason: pain) Qty: 10 0RF Vitamin 27 mg iron- 800 mcg Tablet 1 tab PO QDAY hydrocodone-acetaminophen 5-325 mg tablet 1 tab PO BID MDD 10 PRN (Reason: pain) Qty: 10 0RF hydrocodone-acetaminophen 5-325 mg tablet 2 tab PO Q8H MDD 6 PRN (Reason: pain) Qty: 20 0RF lidocaine [Lidoderm] 5 % adhesive patch,medicated 2 patch topical QDAY PRN (Reason: pain) Qty: 30 0RF Rx Instructions: leave on most painful area for up to 12 hrs ibuprofen 600 mg tablet 600 mg PO TID PRN (Reason: fever or pain) Qty: 30 0RF ibuprofen 800 mg tablet 800 mg PO Q8H PRN (Reason: pain) Qty: 20 0RF hydroxyzine HCl 25 mg tablet 25 mg PO BID PRN (Reason: As needed for anxiety) Qty: 10 0RF famotidine [Pepcid] 40 mg tablet 40 mg PO BID Qty: 20 0RF polyethylene glycol 3350 [Miralax] 17 gram powder in packet 17 g PO QDAY Qty: 30 0RF metoclopramide HCl [Reglan] 10 mg tablet 10 mg PO Q6H PRN (Reason: nausea and vomiting) Qty: 20 0RF ondansetron 4 mg tablet,disintegrating 4 mg PO Q8H PRN (Reason: nausea and vomiting) Qty: 20 0RF Referrals: Cristhian Griffin MD [Primary Care Provider] - In 1 week Patient/Caregiver Discharge Instructions Print Language: Angolan
--- NOTE | 2025-05-01 23:34 | PC.NURSE ---
NO ANSWER FOR REVIEW TO MAIN ED
--- NOTE | 2025-05-01 23:47 | PC.NURSE ---
NO ANSWER FOR REVIEW
== END 2025-05-01 23:48 | disposition left against medical advice (07) ==
LOC: SERX 18:59
PROVIDERS: Nurse Practitioner Primary Care; Emergency Provider Emergency Medicine; PCP Family Medicine
DX: Z53.21 Procedure and treatment not carried out due to patient leaving prior to being seen by health care provider (principal)
CPT/HCPCS: 36415; 71046; 80053; 80307; 84439; 84443; 84484; 84703; 85025; 85379; 93005; 99283

== ENCOUNTER 2025-05-26 03:06 | Emergency (ER) | payer MEDICAID, SELFPAY ==
--- NOTE | 2025-05-26 03:13 | EKG_ITS ---
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
--- NOTE | 2025-05-26 03:13 | XR_ITS ---
EXAMINATION: AP chest single view TECHNIQUE: AP portable upright chest single view Date and time: May 26, 2025, 0328 hours, comparison May 01, 2025 INDICATIONS: Stroke alert today FINDINGS: Normal heart size No aspiration pneumonia. The osseous structures are intact IMPRESSION: No aspiration pneumonia
--- NOTE | 2025-05-26 03:14 | PC.NURSE ---
NOT A STROKE ALERT PER DR. ORTIZ.
--- NOTE | 2025-05-26 03:14 | PD.EDRME ---
Rapid Medical Screening Exam [facility] Arrival date/time: 05/26/25 03:06 This is a case of 29-year-old female who came in in the emergency room due to chest pain dizziness and left upper arm left lower leg numbness since 9:00 in the morning yesterday due to worsening of the symptoms this patient decided to sought consult here in the emergency room Chief Complaint: Chest Pain Time Seen by Provider: 05/26/25 03:12 Exam: Neurological exam noted awake alert oriented x 4 no focal deficit GCS 15/15 steady gait Clinical Impression: Chest pain paresthesia
[2025-05-26 03:17] VITALS: BMI 27.4
[2025-05-26 03:30] LABS: Basophils # (Auto) 0.1 Thou/mm3 (0.0-0.2); Basophils % (Auto) 0 % (0-2.5); Eosinophils # (Auto) 0.0 Thou/mm3 (0.0-0.5); Eosinophils % (Auto) 0 % (0-10); Hematocrit 36.7 % (36.0-46.0); Hemoglobin 11.3 g/dL (12.0-16.0); Immature Granulocytes Auto 0.04 Thou/mm3 (0.00-0.00); Lymphocytes # (Auto) 2.3 Thou/mm3 (1.0-4.8); Lymphocytes % (Auto) 18 % (10-50); Mean Corpuscular HGB Conc 30.8 g/dl (31.0-37.0); Mean Corpuscular Hemoglobin 24.5 pg (25.0-35.0); Mean Corpuscular Volume 80 fL (80-100); Monocytes # (Auto) 0.9 Thou/mm3 (0.0-0.8); Monocytes % (Auto) 7 % (0-12); Neutrophils # (Auto) 9.8 Thou/mm3 (1.8-7.7); Neutrophils % (Auto) 75 % (37-80); Nucleated Red Blood Cell # 0.00 Thou/mm3 (0.00-0.00); Nucleated Red Blood Cell % 0 /100 WBC (0); Platelet Count 332 Thou/mm3 (140-440); RDW Standard Deviation 44.0 fL (36.4-46.3); Red Blood Count 4.61 Miln/mm3 (4.00-5.20); White Blood Count 13.1 Thou/mm3 (3.6-11.0)
[2025-05-26 03:33] VITALS: BP 113/90; PULSE 99; RESP 19; TEMP 37.5; O2SAT 100
[2025-05-26 03:39] VITALS: PULSE 95
[2025-05-26 03:41] VITALS: PULSE 95; RESP 14; O2SAT 98
[2025-05-26 03:41] LABS: Alanine Aminotransferase 13 U/L (10-49); Albumin, Serum 4.5 gm/dL (3.5-5.0); Albumin/Globulin Ratio 1.4 (1.2-2.2); Alkaline Phosphatase 66 U/L (46-116); Anion Gap 11 (7-16); Aspartate Amino Transferase 20 U/L (0-34); BUN/Creatinine Ratio 12 Ratio (12-20); Bilirubin,Total 0.3 mg/dL (0.3-1.2); Blood Urea Nitrogen 7 mg/dL (9-23); Calcium 8.8 mg/dL (8.3-10.6); Calcium (Corrected) 8.8 mg/dL (8.5-10.1); Carbon Dioxide 24.4 mMol/L (20.0-31.0); Chloride 106 mMol/L (98-107); Creatinine (Component) 0.6 mg/dL (0.6-1.3); Estimated Creatinine Clearance 127.7 mL/min (>60); Globulin 3.2 gm/dL (2.3-3.5); Glucose 112 mg/dL (74-106); Magnesium 2.0 mg/dL (1.6-2.6); Osmolality,Calculated 280 (275-295); Potassium 3.9 mMol/L (3.4-5.1); Sodium 141 mMol/L (136-145); Total Protein 7.7 gm/dL (5.7-8.2); Troponin I < 0.002 ng/mL (0.0-0.045); eGFR > 60 See Note
[2025-05-26 03:44] LABS: INR 1.0 (0.9-1.3); Partial Thromboplastin Time 27.1 Seconds (22.0-36.0); Prothrombin Time 10.3 Seconds (9.0-12.2)
[2025-05-26 04:05] LABS: HCG Titer if Positive Negative
--- NOTE | 2025-05-26 04:06 | PD.EDARRY ---
ED Arrhythmia Palp. RME/HPI General Chief Complaint: Chest Pain Stated Complaint: FATIGUE, CHEST PAIN, LEFT HAND AND LEG NUMB SINCE Time Seen by Provider: 05/26/25 03:12 Arrival date/time: 05/26/25 03:06 LEEE / HPI RME / HPI narrative: 05/26/25 03:06 This is a case of 29-year-old female who came in in the emergency room due to chest pain dizziness and left upper arm left lower leg numbness since 9:00 in the morning yesterday due to worsening of the symptoms this patient decided to sought consult here in the emergency room DR. MOCTEZUMA MAIN ED EVALUATION: Patient seen by undersigned on one of multiple visits associated with similar chest pain and palpitations with most recent occurring earlier this evening. Patient maintained on Metoprolol 25 mg BID with PRN Propranolol, which patient indicates she has not taken as rescue today. Denies UE/LE paresthesias. No antecedent nausea, vomiting, cough, or URI symptoms. PMH: Depression, Anxiety PSH: Non-contributory Allergies: NKDA Social: Negative Exam: Neurological exam noted awake alert oriented x 4 no focal deficit GCS 15/15 steady gait Impression: Chest pain paresthesia Related Data Home Medications ?Medication ?Instructions ?Recorded ?Confirmed vits no.124-ferrous fum 1 tab PO QDAY 03/19/19 04/11/19 27 mg iron-folic acid 800 mcg tablet ( Vitamin) Previous Rx's ?Medication ?Instructions ?Recorded hydrocodone 5 mg-acetaminophen 325 1 tab PO Q6H PRN pain #10 tabs 10/09/21 mg tablet hydrocodone 5 mg-acetaminophen 325 1 tab PO BID PRN pain #10 tabs 04/16/24 mg tablet hydrocodone 5 mg-acetaminophen 325 2 tab PO Q8H PRN pain #20 tabs 11/11/24 mg tablet ibuprofen 600 mg tablet 600 mg PO TID PRN fever or pain 11/11/24 #30 tabs lidocaine 5 % topical patch 2 patch topical QDAY PRN pain #30 11/11/24 (Lidoderm) ea ondansetron 4 mg disintegrating 4 mg PO Q8H PRN nausea and 12/30/24 tablet vomiting #20 tabs hydroxyzine HCl 25 mg tablet 25 mg PO BID PRN As needed for 02/25/25 anxiety #10 tabs ibuprofen 800 mg tablet 800 mg PO Q8H PRN pain #20 tabs 02/25/25 famotidine 40 mg tablet (Pepcid) 40 mg PO BID #20 tabs 03/14/25 metoclopramide HCl 10 mg tablet 10 mg PO Q6H PRN nausea and 03/14/25 (Reglan) vomiting #20 tabs polyethylene glycol 3350 17 gram 17 g PO QDAY #30 ea 03/14/25 oral powder packet (Miralax) Allergies Allergy/AdvReac Type Severity Reaction Status Date / Time No Known Allergies Allergy Verified 05/01/25 16:01 Review of Systems Review of Systems Systems Reviewed: All systems reviewed, normal except as documented Past Medical History Past Medical History PSYCHO/SOCIAL: Positive Depression and Anxiety Family History FAMILY HISTORY: Positive Family Cardiac Disorders and Family Cancer ED Exam Narrative Physical exam: GEN. APPEARANCE: The patient is alert awake oriented X-3 appears anxious, notably tachycardic, c/o palpitations, lying down comfortably, does not look ill/toxic. Patient has good eye contact. Patient is cooperative. VITALS: All vitals were reviewed and the pulse ox is 100%, which is normal according to my interpretation HEENT: Normocephalic, atraumatic and nontender. Pupils are equal and reactive. Oral mucosa is moist. NECK: Supple, nontender, no meningismus, no JVD. There is no thyromegaly and no lymphadenopathy. CHEST: Nontender on palpation no deformity and no crepitus. CARDIOVASCULAR: Tachycardic, no murmur or gallop rub or extra beats. LUNGS: Clear to auscultation bilaterally with symmetrical chest rise. No laboring tachypnea or wheezing. No intercostal subcostal retraction. No rales and no rhonchi. ABDOMEN: Soft, flat, nontender to palpation, no guarding or rebound tenderness. There are no abnormal masses palpated. No pulsatile masses or bruits. Active and normal bowel sounds. EXTREMITIES: Normal inspection and palpation. No edema. No cyanosis. Patient is able to move all 4 extremities well SKIN: Warm and dry, no rashes noted. MUSCULOSKELETAL: No lumbar or midline bony tenderness. There is no CVA tenderness. No paraspinal muscle spasm or tenderness. NEURO: Cranial nerves II through XII grossly intact. There are no focal neurologic deficits noted. GCS is 15 PSYCHIATRIC: Patient is in normal mood and affect, cooperative. LYMPHATICS: No major lymphadenopathy noted. Course Quality Measures none Orders Category Date Time Status Bedside Blood Glucose NOW Care 05/26/25 03:13 Active Horticultural Services Supervisor NOW Care 05/26/25 03:13 Active Continuous Pulse Oximetry NOW Care 05/26/25 03:13 Completed EKG (ED ONLY) *Do not use* NOW Care 05/26/25 03:13 Completed In and Out Catheter NEEDED Care 05/26/25 03:13 Active Insert IV NOW Care 05/26/25 03:13 Active NIH Stroke Scale now Care 05/26/25 03:13 Active NPO NOW Care 05/26/25 03:13 Active Nurse Swallow Screen x1 Care 05/26/25 03:13 Active Consult to Neurology / Tele-Neurology Routine Cons 05/26/25 03:13 Active EKG (ED Only) Stat Exams 05/26/25 03:13 Draft XR chest 1V portable Stat Exams 05/26/25 03:13 Taken CBC Stat Lab 05/26/25 03:16 Completed Comprehensive Metabolic Panel Stat Lab 05/26/25 03:16 Completed Drug Screen,Urine Stat Lab 05/26/25 03:13 Ordered HCG Titer if Positive Stat Lab 05/26/25 03:16 Completed Magnesium Stat Lab 05/26/25 03:16 Completed Partial Thromboplastin Time Stat Lab 05/26/25 03:16 Completed Prothrombin Time with INR Stat Lab 05/26/25 03:16 Completed Troponin I Stat Lab 05/26/25 03:16 Completed Urinalysis, C/S if Indicated Stat Lab 05/26/25 03:13 Ordered Labetalol* IV [Trandate* IV] Med 05/26/25 03:13 Active 10 mg IVP Q15M PRN Ondansetron Inj [Zofran Inj] Med 05/26/25 03:13 Active 4 mg IVP Q4HR PRN Oxygen Delivery NOW RT 05/26/25 03:13 Active Vital Signs Vital signs: Vital Signs Temperature 99.5 F 05/26/25 03:33 Pulse Rate 99 05/26/25 03:33 Respiratory Rate 19 05/26/25 03:33 Blood Pressure 113/90 H 05/26/25 03:33 Pulse Oximetry (%) 100 05/26/25 03:33 Oxygen Delivery Method Room Air 05/26/25 03:33 Arrhythmia/Palpitations MDM Narrative MDM Narrative:: Scribe Attestation: I, Yeimi Flores, am scribing for and in the presence of Dr. Palmer. Provider Notation: Although this document has been carefully reviewed, there may still be some phonetic and other typographical errors. These errors are purely grammatical due to imperfections in the software program and should not be construed in any way to compromise the substance of the patient's medical care during this visit. Patient seen by undersigned on one of multiple visits associated with similar chest pain and palpitations with most recent occurring earlier this evening. Patient maintained on Metoprolol 25 mg BID with PRN Propranolol, which patient indicates she has not taken as rescue today. Please see PE findings. Laboratory markers, including CBC and serum chemistries, demonstrated elevated WBC of 13.1, H&H of 11/36, and platelet count of 332. Serum essentially unremarkable, excluding glucose which is mildly elevated at 112. EKG demonstrates tachycardia without brugada syndrome or accessory pathway. CXR unremarkable. Immediately triaged to monitored bed with noted variable tachycardia with minimal provocation. Administered low-dose IV beta block-aid in conjunction with benzodiazepines with reduction in HR below 100. Patient subsequently administered 37.5 mg of Metoprolol Tartrate and after extended period of observation, is considered stable for discharge. TSH currently pending. No signs of ischemia, infarction, or pericarditis. Patient will be discharged home. Final diagnoses include palpitations and paroxysmal tachycardia. Patient data External records reviewed:: [facility] previous records (Reviewed prior ED records from 04/28/25. Patient was seen for Palpitations.) Clinical information provided by:: patient Social determinants that could affect healthcare access:: mental health (Anxiety, Depression) Patient has the following chronic illnesses:: Anxiety, Depression How is presenting disease/condition affected by chronic disease/condition?: exacerbated by Evaluation data The following diagnostics were reviewed and interpreted by me:: lab results, radiology exam(s) and EKG tracing(s) (EKG at 03:30 shows sinus tachycardia at 100 bpm, slightly rightward axis, no ectopy, no ST segment changes, intervals are normal, per my interpretation.) Lab and/or radiology exams considered but not ordered:: None Interpretation Summary: RADIOLOGY Chest X-Ray: Pending official radiology report. Medications / Prescriptions Medications or Prescriptions considered but not ordered:: None Medication administrations:: Medication Administration History Labetalol HCl (Labetalol Inj 5 Mg/Ml Vial 4 Ml) 10 mg IVP Q15M PRN PRN Reason: hypertension Ondansetron HCl (Ondansetron Inj 2 Mg/Ml Inj 2 Ml) 4 mg IVP Q4HR PRN PRN Reason: NAUSEA OR VOMITING Stop: 06/25/25 03:12 Consultations Consultation(s) initiated? (list below): No Diagnosis Differential diagnosis arrhythmia/palpitations: palpitations, anxiety, sinus tachycardia, artial fibrillation, artial flutter, ventricular premature beats, supraventricular tachycardia and ventricular tachycardia Most likely diagnosis given after review of the tests above:: Palpitations, Paroxysmal tachycardia Admission Indicated Admission indicated?: not indicated Explain why admission is indicated or not indicated:: Patient does not meet admission criteria Admission Request Was there a request for admission?: No Disposition Plan Disposition Plan: Discharge Discharge Attestation Discharge Attestation: The patient and all family members were given an opportunity to ask questions and understood the discharge instructions. Discharge instructions specifically effects, indications for sooner follow up or return to the emergency department, and the expected course of current diagnosis. Patient condition: Stable Discharge Plan Plan Patient Disposition: HOME (Self Care) Prescriptions/Referrals Prescriptions/Med Rec: No Action hydrocodone-acetaminophen 5-325 mg tablet 1 tab PO Q6H MDD 3 PRN (Reason: pain) Qty: 10 0RF Vitamin 27 mg iron- 800 mcg Tablet 1 tab PO QDAY hydrocodone-acetaminophen 5-325 mg tablet 1 tab PO BID MDD 10 PRN (Reason: pain) Qty: 10 0RF hydrocodone-acetaminophen 5-325 mg tablet 2 tab PO Q8H MDD 6 PRN (Reason: pain) Qty: 20 0RF lidocaine [Lidoderm] 5 % adhesive patch,medicated 2 patch topical QDAY PRN (Reason: pain) Qty: 30 0RF Rx Instructions: leave on most painful area for up to 12 hrs ibuprofen 600 mg tablet 600 mg PO TID PRN (Reason: fever or pain) Qty: 30 0RF ibuprofen 800 mg tablet 800 mg PO Q8H PRN (Reason: pain) Qty: 20 0RF hydroxyzine HCl 25 mg tablet 25 mg PO BID PRN (Reason: As needed for anxiety) Qty: 10 0RF famotidine [Pepcid] 40 mg tablet 40 mg PO BID Qty: 20 0RF polyethylene glycol 3350 [Miralax] 17 gram powder in packet 17 g PO QDAY Qty: 30 0RF metoclopramide HCl [Reglan] 10 mg tablet 10 mg PO Q6H PRN (Reason: nausea and vomiting) Qty: 20 0RF ondansetron 4 mg tablet,disintegrating 4 mg PO Q8H PRN (Reason: nausea and vomiting) Qty: 20 0RF Referrals: Cristhian Griffin MD [Primary Care Provider] - In 1 week Problem List Clinical Impression: Palpitations, Paroxysmal tachycardia Patient/Caregiver Discharge Instructions Education Materials: ED Palpitations, ED Tachycardia: PAT Additional Instructions: Will increase a.m. metoprolol to tartrate from 25 mg to 37-1/2 mg twice daily. May take a a pocket dose of 25 mg metoprolol tablet for sustained palpitations with heart rate greater than 110. Follow-up with yard manager as anticipated. Return if worsening for Print Language: Bulgarian Stand Alone Forms: Marley Award Info., Patient Portal Info Letter
[2025-05-26] MEDS: ONDANSETRON INJ 2 MG/ML INJ 2 ML 4 MG IVP (04:15)
[2025-05-26] MEDS: SODIUM CHLORIDE 0.9% 1000 ML 1,000 ML 999 ML IV (04:16)
[2025-05-26] MEDS: MIDAZOLAM INJ 1 MG/ML VIAL 2 ML 2 MG IVP (04:17)
[2025-05-26 04:18] VITALS: BP 113/90; PULSE 97
[2025-05-26 04:36] LABS: Collection Type, Urine Voided
[2025-05-26 04:38] LABS: Bilirubin,Urine Negative (Negative); Blood,Urine Negative (Negative); Clarity,Urine Clear (Clear/Hazy); Color,Urine Colorless (Lt Yel-Yel); Culture Indicated,Urine Not Indicated; Glucose, Urine Negative (Negative); Ketones,Urine Negative (Negative); Leukocyte Esterase,Urine Negative (Negative); Nitrite,Urine Negative (Negative); PH,Urine 7.5 (5.0-7.0); Protein,Urine Negative (Neg - Trace); RBC,Urine 1 /hpf (0-3); Specific Gravity,Urine 1.007 (1.001-1.035); Squamous Epithelial Cell,Urine 1 /hpf (0-5); Urobilinogen,Urine Negative mg/dL (0.0-1.0); WBC,Urine 1 /hpf (0-5)
[2025-05-26 05:01] LABS: Amphetamine/Methamp Scrn,U Negative (Negative); Barbiturate Screen,Urine Negative (Negative); Benzodiazepines Screen,Urine Negative (Negative); Benzoylecgonine Screen, Ur Negative (Negative); Fentanyl Screen,Urine Negative (Negative); Opiate Screen,Urine Negative (Negative); THC Screen,Urine Negative (Negative)
[2025-05-26 05:13] VITALS: BP 101/59; PULSE 77
[2025-05-26] MEDS: METOPROLOL TARTRATE 25 MG TABLET 37.5 MG PO (05:13)
[2025-05-26 05:24] LABS: Thyroid Stimulating Hormone 1.86 uIU/mL (0.55-4.78)
[2025-05-26 05:52] VITALS: BP 115/48; PULSE 65; RESP 14; TEMP 37; O2SAT 99
== END 2025-05-26 05:53 | disposition home or self-care (01) ==
PROVIDERS: Nurse Practitioner Family; Emergency Provider Emergency Medicine; PCP Family Medicine
DX: I47.9 Paroxysmal tachycardia, unspecified (principal)
CPT/HCPCS: 36415; 71045; 80053; 80307; 81001; 83735; 84443; 84484; 84703; 85025; 85610; 85730; 93005; 96361; 96374; 96375; 99284; J2250; J2405; J3490; J7030; A9270

== ENCOUNTER 2025-06-20 03:42 | Emergency (ER) | payer MEDICAID, SELFPAY ==
[2025-06-20 03:43] VITALS: BMI 27.4
--- NOTE | 2025-06-20 03:45 | EKG_ITS ---
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
[2025-06-20 03:55] VITALS: BP 139/95; PULSE 91; RESP 18; TEMP 37.2; O2SAT 99
--- NOTE | 2025-06-20 04:09 | PD.EDRME ---
Rapid Medical Screening Exam RME Arrival date/time: 06/20/25 03:42 29F with history of anxiety presents to ED with heart palps, dizziness, and fatigue. Patient has been here several times of this recently. Chief Complaint: Chest Pain Vital signs: Vital Signs Temperature 99.0 F 06/20/25 03:55 Pulse Rate 91 06/20/25 03:55 Respiratory Rate 18 06/20/25 03:55 Blood Pressure 139/95 H 06/20/25 03:55 Pulse Oximetry (%) 99 06/20/25 03:55 Oxygen Delivery Method Room Air 06/20/25 03:55 Exam: Tremors. Very anxious. RRR. Clear lungs. Clinical Impression: anxiety vs drug use vs electrolyte abnormality vs rhabdo vs vitamin deficiency
--- NOTE | 2025-06-20 04:15 | PC.NURSE ---
PATIENT WALKED OUT OF THE ED LOBBY AT THIS TIME AND DROVE OUT OF PARKING LOT. PER [employer] HR DEVELOPER STAFF PATIENT STATED THAT SHE WAS GOING TO LEAVE.
== END 2025-06-20 04:20 | disposition left against medical advice (07) ==
LOC: SERX 06:04
PROVIDERS: Emergency Provider Emergency Medicine; PCP Family Medicine
DX: R07.9 Chest pain, unspecified (principal); R42 Dizziness and giddiness; R53.83 Other fatigue; I49.1 Atrial premature depolarization; Z53.29 Procedure and treatment not carried out because of patient's decision for other reasons
CPT/HCPCS: 80053; 82550; 83735; 83880; 84484; 85025; 93005; 99281